=== PATIENT | female | born 1935 | race Caucasian/White ===

== ENCOUNTER 2021-08-08 20:46 | Inpatient (IN) | payer OTHER, MEDICAID ==
[~2021-08-08] VITALS: Ht 162.6 cm; Wt 59.0 kg
[~2021-08-08 20:46] MED LIST: APIX2.5T PO; CYCL-611 PO; DILT-26 PO; GABA-339 PO; GABA300C10 PO
[2021-08-08 21:54] LABS: Urine Bacteria NONE SEEN /hpf (None Seen); Urine Blood Negative /uL (Negative); Urine Specific Gravity 1.005 (1.001-1.035); Urine WBC 7 /hpf (0 - 5)
[2021-08-09 01:06] LABS: Basophils # (auto) 0 10 ^3/uL (0-0.2); Basophils % (auto) 0.5 % (0.0-2.0); Eosinophils # (auto) 0.3 10 ^3/uL (0-0.8); Eosinophils % (auto) 3.9 % (0.0-7.0); Hematocrit 36.5 % (36.0-46.0); Hemoglobin 12.5 g/dL (12.2-16.2); Lymphocytes # (auto) 2.2 10 ^3/uL (0.4-5.4); Lymphocytes % (auto) 29.6 % (10.0-50.0); Mean Corpuscular Hemoglobin 29.8 pg (28.0-32.0); Mean Corpuscular Hgb Conc. 34.3 g/dL (32.0-36.0); Mean Corpuscular Volume 86.8 fL (80.0-100.0); Monocytes # (auto) 0.6 10 ^3/uL (0-1.3); Monocytes % (auto) 8.4 % (0.0-12.0); Neutrophils # (auto) 4.3 10 ^3/uL (1.6-8.6); Neutrophils % (auto) 57.6 % (37.0-80.0); Red Cell Distribution Width 12.7 % (11.8-14.3); White Blood Cell 7.5 10^3/uL (4.4-10.8)
[2021-08-09 01:06] LABS: Albumin 4.4 g/dL (3.4-5.0); Calcium 9.1 mg/dL (8.5-10.1); Potassium 5.1 mmol/L (3.5-5.1)
[2021-08-09 01:07] LABS: Lactic Acid w/Reflex 2.2 mmol/L (0.4-2.0)
[2021-08-09 01:08] LABS: BUN/Creatinine Ratio 11.9
[2021-08-09 01:10] LABS: Bilirubin, Total 0.5 mg/dL (0.2-1.0); Total Protein 8.5 g/dL (6.4-8.2)
[2021-08-09] MEDS ORDERED: cefTRIAXone 1GM/50ML D5W 50 ML IV ONE (03:00)
[2021-08-09] MEDS ORDERED: HYDROcodone-ACET 5/325MG TAB PO PRN (07:45)
[2021-08-09] MEDS ORDERED: LABETALOL HCL 5 MG/ML 4ML SYRINGE IV PRN (07:45)
[2021-08-09] MEDS ORDERED: MORPHINE SULFATE INJ 2 MG/ml SYRG IV PRN (07:45)
[2021-08-09] MEDS ORDERED: NITROGLYCERIN 0.4 MG SL TAB SL PRN (07:45)
[2021-08-09] MEDS ORDERED: ACETAMINOPHEN 325 MG TAB PO PRN (07:45)
[2021-08-09] MEDS ORDERED: ONDANSETRON HCL 4 MG/2 ML VIAL IV PRN (07:45)
[2021-08-09] MEDS ORDERED: MORPHINE SULFATE INJ 2 MG/ml SYRG IV ONE (08:00)
[2021-08-09] MEDS ORDERED: D5W/SOD CHLO 0.9% 1,000 ML IV SCH (08:00)
[2021-08-09] MEDS ORDERED: ONDANSETRON HCL 4 MG/2 ML VIAL IV ONE (08:00)
[2021-08-09 08:18] LABS: Basophils # (auto) 0 10 ^3/uL (0-0.2); Basophils % (auto) 0.4 % (0.0-2.0); Eosinophils # (auto) 0.1 10 ^3/uL (0-0.8); Eosinophils % (auto) 1.6 % (0.0-7.0); Hematocrit 36.5 % (36.0-46.0); Hemoglobin 12.7 g/dL (12.2-16.2); Lymphocytes # (auto) 1.9 10 ^3/uL (0.4-5.4); Lymphocytes % (auto) 22.7 % (10.0-50.0); Mean Corpuscular Hemoglobin 29.9 pg (28.0-32.0); Mean Corpuscular Hgb Conc. 34.8 g/dL (32.0-36.0); Monocytes # (auto) 0.5 10 ^3/uL (0-1.3); Monocytes % (auto) 5.9 % (0.0-12.0); Neutrophils # (auto) 5.9 10 ^3/uL (1.6-8.6); Neutrophils % (auto) 69.4 % (37.0-80.0); Red Blood Cells 4.24 10^6/uL (4.0-5.20); Red Cell Distribution Width 12.7 % (11.8-14.3); White Blood Cell 8.5 10^3/uL (4.4-10.8)
[2021-08-09] MEDS ORDERED: CIPR-173 PO (08:41)
[2021-08-09] MEDS ORDERED: ONDA-144 PO (08:44)
[2021-08-09 08:51] LABS: Potassium 4.3 mmol/L (3.5-5.1)
[2021-08-09 08:59] LABS: Bilirubin, Total 0.7 mg/dL (0.2-1.0); Calcium 8.8 mg/dL (8.5-10.1); Total Protein 8.7 g/dL (6.4-8.2)
[2021-08-09 09:14] VITALS: BP 160/91
[2021-08-09] MEDS ORDERED: FAMOTIDINE (10MG/ML) 2ML VL IV SCH (10:00)
[2021-08-09] MEDS ORDERED: APIXABAN 2.5 MG TAB PO SCH (10:00)
[2021-08-09] MEDS ORDERED: CARVEDILOL 12.5 MG TAB PO SCH (10:00)
[2021-08-10] MEDS ORDERED: cefTRIAXone 1GM/50ML D5W 50 ML IV SCH (09:00)
== END 2021-08-09 10:58 | disposition home or self-care (01) | DRG 690 ==
LOC: ER 20:46 → OVERFLOW 08-09 07:47
PROVIDERS: ADMIT Nurse Practitioner Family; ATTEND Nurse Practitioner Family
DX: N30.00 Acute cystitis without hematuria (principal); E87.1 Hypo-osmolality and hyponatremia; E87.2 Acidosis; I10 Essential (primary) hypertension; I48.91 Unspecified atrial fibrillation; Z80.51 Family history of malignant neoplasm of kidney; Z85.528 Personal history of other malignant neoplasm of kidney; Z86.73 Personal history of transient ischemic attack (TIA), and cerebral infarction without residual deficits; Z87.442 Personal history of urinary calculi; Z90.49 Acquired absence of other specified parts of digestive tract; Z88.2 Allergy status to sulfonamides; Z20.822 Contact with and (suspected) exposure to COVID-19
CPT/HCPCS: 36415; 71045; 74176; 76705; 80053; 81001; 83605; 83880; 84484; 85025; 87086; 96365; 96375; G0378; J0696; J2405

== ENCOUNTER 2022-07-05 17:44 | Inpatient (IN) | payer OTHER ==
[~2022-07-05] VITALS: Ht 162.6 cm; Wt 60.5 kg
[~2022-07-05 17:44] MED LIST changes: +CIPR-173 PO; +ONDA-144 PO
[2022-07-05] MEDS ORDERED: LACTATED RINGER'S 1,000 ML IV ONE (18:30)
[2022-07-05 18:45] LABS: Urine Bacteria NONE SEEN /hpf (None Seen); Urine Blood Negative /uL (Negative); Urine Specific Gravity 1.009 (1.001-1.035); Urine WBC 8 /hpf (0 - 5)
[2022-07-05 18:53] LABS: Basophils # (auto) 0 10 ^3/uL (0-0.2); Basophils % (auto) 0.2 % (0.0-2.0); Eosinophils # (auto) 0.1 10 ^3/uL (0-0.8); Eosinophils % (auto) 0.4 % (0.0-7.0); Hematocrit 35.1 % (36.0-46.0); Hemoglobin 11.6 g/dL (12.2-16.2); Lymphocytes # (auto) 1.3 10 ^3/uL (0.4-5.4); Lymphocytes % (auto) 9.3 % (10.0-50.0); Mean Corpuscular Hemoglobin 29.3 pg (28.0-32.0); Mean Corpuscular Volume 88.7 fL (80.0-100.0); Monocytes % (auto) 6.8 % (0.0-12.0); Neutrophils # (auto) 11.9 10 ^3/uL (1.6-8.6); Neutrophils % (auto) 83.3 % (37.0-80.0); Nucleated Red Blood Cells % 0.1 %; Red Blood Cells 3.96 10^6/uL (4.0-5.20); Red Cell Distribution Width 13.5 % (11.8-14.3); White Blood Cell 14.3 10^3/uL (4.4-10.8)
[2022-07-05 19:09] LABS: Albumin 3.8 g/dL (3.4-5.0); BUN/Creatinine Ratio 12.5 (10.0-20.0); Calcium 9.1 mg/dL (8.5-10.1); Potassium 4.1 mmol/L (3.5-5.1)
[2022-07-05 19:13] LABS: Bilirubin, Total 0.7 mg/dL (0.2-1.0); Total Protein 8.5 g/dL (6.4-8.2)
[2022-07-05] MEDS ORDERED: IOHEXOL 350 MG/ML 100ML IJ ONE (20:27)
[2022-07-05] MEDS ORDERED: cefTRIAXone 1GM/50ML D5W 50 ML IV ONE (20:30)
[2022-07-05] MEDS ORDERED: HYDROcodone-ACET 5/325MG TAB PO ONE (20:45)
[2022-07-05] MEDS ORDERED: SODIUM CHLORIDE 0.9% 1,000 ML IV SCH (21:00)
[2022-07-05] MEDS ORDERED: ACETAMINOPHEN 325 MG TAB PO PRN (21:00)
[2022-07-05] MEDS: APIXABAN 2.5 MG TAB PO SCH (23:57)
[2022-07-05] MEDS: GABAPENTIN 300 MG CAP PO SCH (23:57)
[2022-07-06] MEDS: GABAPENTIN 300 MG CAP PO SCH ×3 (01:16→21:57)
[2022-07-06] MEDS: HYDROcodone-ACET 5/325MG TAB PO PRN ×3 (01:16→19:59)
[2022-07-06 05:57] LABS: Basophils # (auto) 0 10 ^3/uL (0-0.2); Basophils % (auto) 0.2 % (0.0-2.0); Eosinophils # (auto) 0 10 ^3/uL (0-0.8); Eosinophils % (auto) 0.1 % (0.0-7.0); Hematocrit 35.2 % (36.0-46.0); Hemoglobin 11.8 g/dL (12.2-16.2); Lymphocytes # (auto) 1.8 10 ^3/uL (0.4-5.4); Lymphocytes % (auto) 13.6 % (10.0-50.0); Mean Corpuscular Hemoglobin 29.4 pg (28.0-32.0); Mean Corpuscular Hgb Conc. 33.5 g/dL (32.0-36.0); Mean Corpuscular Volume 87.8 fL (80.0-100.0); Monocytes % (auto) 7.9 % (0.0-12.0); Neutrophils # (auto) 10.2 10 ^3/uL (1.6-8.6); Neutrophils % (auto) 78.2 % (37.0-80.0); Nucleated Red Blood Cells % 0.1 %; Red Blood Cells 4.01 10^6/uL (4.0-5.20); Red Cell Distribution Width 13.3 % (11.8-14.3)
[2022-07-06 06:18] LABS: Potassium 3.5 mmol/L (3.5-5.1)
[2022-07-06 06:26] LABS: Albumin 3.2 g/dL (3.4-5.0); BUN/Creatinine Ratio 14.1 (10.0-20.0); Bilirubin, Total 0.7 mg/dL (0.2-1.0); Calcium 8.6 mg/dL (8.5-10.1); Total Protein 7.8 g/dL (6.4-8.2)
[2022-07-06] MEDS: cefTRIAXone 1GM/50ML D5W 50 ML IV SCH (10:00)
[2022-07-06] MEDS: dilTIAZem HCL 180MG ER CAP PO SCH (10:02)
[2022-07-06] MEDS: APIXABAN 2.5 MG TAB PO SCH (10:06)
[2022-07-06] MEDS ORDERED: DIGOXIN 0.125 MG TAB PO ONE (11:15)
[2022-07-06] MEDS ORDERED: DIGOXIN (250MCG/ML) 2 ML AMPULE IV ONE (11:30)
[2022-07-06] MEDS ORDERED: POTASSIUM EFFERVESENT TAB 25 MEQ PO ONE (13:00)
[2022-07-06] MEDS ORDERED: FUROSEMIDE 20 MG/2 ML VIAL IV ONE (13:00)
[2022-07-06] MEDS ORDERED: AMIODARONE 450mg/250ml AE 250 ML IV SCH (13:00)
[2022-07-06] MEDS ORDERED: AMIODARONE HCL 150 MG in D5W 5% 100 ML IV ONE (13:00)
[2022-07-06 16:02] LABS: Magnesium 2.2 mg/dL (1.6-2.6)
[2022-07-06] MEDS ORDERED: RIVAROXABAN 20 MG TAB PO SCH (18:00)
[2022-07-06 19:53] VITALS: BP 125/56
[2022-07-06] MEDS: FUROSEMIDE 20 MG/2 ML VIAL IV SCH (20:04)
[2022-07-06] MEDS: RIVAROXABAN 15 MG TAB PO SCH (20:05)
[2022-07-06 22:00] VITALS: BP 119/65
[2022-07-07] MEDS: HYDROcodone-ACET 5/325MG TAB PO PRN ×2 (00:05→09:00)
[2022-07-07] MEDS: AMIODARONE 450mg/250ml AE 250 ML IV SCH ×2 (02:33→09:04)
[2022-07-07 05:00] VITALS: BP 115/59
[2022-07-07] MEDS: FUROSEMIDE 20 MG/2 ML VIAL IV SCH ×2 (06:47→17:40)
[2022-07-07 08:00] VITALS: BP 115/59
[2022-07-07 09:00] VITALS: BP 108/51
[2022-07-07] MEDS: cefTRIAXone 1GM/50ML D5W 50 ML IV SCH (09:01)
[2022-07-07] MEDS: GABAPENTIN 300 MG CAP PO SCH (09:01)
[2022-07-07] MEDS: dilTIAZem HCL 180MG ER CAP PO SCH (09:10)
[2022-07-07 09:38] LABS: Basophils # (auto) 0 10 ^3/uL (0-0.2); Basophils % (auto) 0.3 % (0.0-2.0); Eosinophils # (auto) 0.1 10 ^3/uL (0-0.8); Eosinophils % (auto) 1.4 % (0.0-7.0); Hematocrit 36.7 % (36.0-46.0); Hemoglobin 12.3 g/dL (12.2-16.2); Lymphocytes # (auto) 1.5 10 ^3/uL (0.4-5.4); Lymphocytes % (auto) 16.4 % (10.0-50.0); Mean Corpuscular Hemoglobin 29.7 pg (28.0-32.0); Mean Corpuscular Hgb Conc. 33.5 g/dL (32.0-36.0); Mean Corpuscular Volume 88.6 fL (80.0-100.0); Monocytes # (auto) 0.4 10 ^3/uL (0-1.3); Monocytes % (auto) 4.5 % (0.0-12.0); Neutrophils # (auto) 7.2 10 ^3/uL (1.6-8.6); Neutrophils % (auto) 77.4 % (37.0-80.0); Red Blood Cells 4.14 10^6/uL (4.0-5.20); Red Cell Distribution Width 13.5 % (11.8-14.3); White Blood Cell 9.4 10^3/uL (4.4-10.8)
[2022-07-07 09:52] LABS: Albumin 3.4 g/dL (3.4-5.0); Calcium 8.9 mg/dL (8.5-10.1); Potassium 3.9 mmol/L (3.5-5.1)
[2022-07-07 09:56] LABS: Bilirubin, Total 0.6 mg/dL (0.2-1.0); Total Protein 7.9 g/dL (6.4-8.2)
[2022-07-07] MEDS ORDERED: AMIODARONE HCL 200 MG TAB PO SCH (11:06)
[2022-07-07 13:00] VITALS: BP 106/51
[2022-07-07 16:58] VITALS: BP 110/53
[2022-07-07] MEDS: RIVAROXABAN 15 MG TAB PO SCH (17:40)
[2022-07-07 17:41] VITALS: BP 110/53
[2022-07-08] MEDS ORDERED: dilTIAZem 120MG ER CAP PO SCH (10:00)
[2022-07-08] MEDS ORDERED: AMIODARONE HCL 200 MG TAB PO SCH (10:00)
== END 2022-07-07 19:07 | disposition home or self-care (01) | DRG 871 ==
LOC: ER 17:44 → EDBD 17:44 → EDUNIT# 17:44 → OVERFLOW 21:17 → EAST 07-06 18:55 → TELE-EAST 07-06 21:49
PROVIDERS: ADMIT Nurse Practitioner Family; ATTEND Internal Medicine
DX: A41.9 Sepsis, unspecified organism (principal); I50.33 Acute on chronic diastolic (congestive) heart failure; N39.0 Urinary tract infection, site not specified; D25.9 Leiomyoma of uterus, unspecified; E66.9 Obesity, unspecified; E78.5 Hyperlipidemia, unspecified; I11.0 Hypertensive heart disease with heart failure; G62.9 Polyneuropathy, unspecified; M13.88 Other specified arthritis, other site; I48.0 Paroxysmal atrial fibrillation; Z20.822 Contact with and (suspected) exposure to COVID-19; R91.1 Solitary pulmonary nodule; Z68.22 Body mass index [BMI] 22.0-22.9, adult; Z80.51 Family history of malignant neoplasm of kidney; Z79.01 Long term (current) use of anticoagulants; Z86.73 Personal history of transient ischemic attack (TIA), and cerebral infarction without residual deficits; Z87.442 Personal history of urinary calculi; Z88.2 Allergy status to sulfonamides
CPT/HCPCS: 36415; 71045; 73502; 74177; 80053; 80061; 81001; 83036; 83605; 83690; 83735; 83880; 84443; 84484; 85025; 87040; 87086; 87426; 93005; 93306; 97110; 97116; 97163; 97530; G0378; J0696; J7060

== ENCOUNTER 2022-07-24 17:21 | Inpatient (IN) | payer OTHER ==
[~2022-07-24] VITALS: Ht 162.6 cm; Wt 67.6 kg
[2022-07-24] MEDS ORDERED: SODIUM CHLORIDE 0.9% 500 ML IV ONE (18:00)
[2022-07-24] MEDS ORDERED: ONDANSETRON HCL 4 MG/2 ML VIAL IV ONE (18:00)
[2022-07-24 18:36] LABS: Basophils # (auto) 0 10 ^3/uL (0-0.2); Basophils % (auto) 0.4 % (0.0-2.0); Eosinophils # (auto) 0.1 10 ^3/uL (0-0.8); Eosinophils % (auto) 1.1 % (0.0-7.0); Hematocrit 33.8 % (36.0-46.0); Hemoglobin 11.2 g/dL (12.2-16.2); Lymphocytes # (auto) 1.6 10 ^3/uL (0.4-5.4); Lymphocytes % (auto) 18.3 % (10.0-50.0); Mean Corpuscular Hgb Conc. 33.1 g/dL (32.0-36.0); Mean Corpuscular Volume 87.5 fL (80.0-100.0); Monocytes # (auto) 0.6 10 ^3/uL (0-1.3); Monocytes % (auto) 6.6 % (0.0-12.0); Neutrophils # (auto) 6.3 10 ^3/uL (1.6-8.6); Neutrophils % (auto) 73.6 % (37.0-80.0); Nucleated Red Blood Cells % 0.1 %; Red Blood Cells 3.87 10^6/uL (4.0-5.20); White Blood Cell 8.5 10^3/uL (4.4-10.8)
[2022-07-24 18:49] LABS: Albumin 3.8 g/dL (3.4-5.0); Calcium 8.9 mg/dL (8.5-10.1); Magnesium 1.9 mg/dL (1.6-2.6); Potassium 4.1 mmol/L (3.5-5.1)
[2022-07-24 18:52] LABS: Bilirubin, Total 0.5 mg/dL (0.2-1.0)
[2022-07-24 19:36] LABS: Urine Amorphous Crystal FEW /hpf (None Seen); Urine Bacteria NONE SEEN /hpf (None Seen); Urine Blood Negative /uL (Negative); Urine Specific Gravity 1.011 (1.001-1.035); Urine WBC 1 /hpf (0 - 5)
[2022-07-24] MEDS ORDERED: DOCUSATE SOD 100 MG CAP PO PRN (21:15)
[2022-07-24] MEDS ORDERED: cefTRIAXone 1GM/50ML D5W 50 ML IV ONE (21:15)
[2022-07-24] MEDS ORDERED: MORPHINE SULFATE INJ 2 MG/ml SYRG IV PRN (22:30)
[2022-07-24] MEDS ORDERED: NITROGLYCERIN 0.4 MG SL TAB SL PRN (22:30)
[2022-07-25] MEDS: APIXABAN 2.5 MG TAB PO SCH ×2 (00:06→10:11)
[2022-07-25] MEDS: SODIUM CHLORIDE 0.9% 1,000 ML IV SCH ×2 (04:55→18:59)
[2022-07-25] MEDS: hydrALAZINE HCL 20 MG/ML VL IV PRN ×2 (05:08→21:42)
[2022-07-25] MEDS: HYDROcodone-ACET 5/325MG TAB PO PRN ×4 (05:38→21:58)
[2022-07-25 05:50] LABS: Basophils # (auto) 0 10 ^3/uL (0-0.2); Basophils % (auto) 0.4 % (0.0-2.0); Eosinophils # (auto) 0.2 10 ^3/uL (0-0.8); Eosinophils % (auto) 2.5 % (0.0-7.0); Hematocrit 32.4 % (36.0-46.0); Hemoglobin 11.1 g/dL (12.2-16.2); Lymphocytes # (auto) 1.8 10 ^3/uL (0.4-5.4); Lymphocytes % (auto) 25.9 % (10.0-50.0); Mean Corpuscular Hemoglobin 29.6 pg (28.0-32.0); Mean Corpuscular Hgb Conc. 34.1 g/dL (32.0-36.0); Mean Corpuscular Volume 86.7 fL (80.0-100.0); Monocytes # (auto) 0.5 10 ^3/uL (0-1.3); Monocytes % (auto) 7.5 % (0.0-12.0); Neutrophils # (auto) 4.5 10 ^3/uL (1.6-8.6); Neutrophils % (auto) 63.7 % (37.0-80.0); Nucleated Red Blood Cells % 0.1 %; Red Blood Cells 3.74 10^6/uL (4.0-5.20); Red Cell Distribution Width 13.1 % (11.8-14.3); White Blood Cell 7.1 10^3/uL (4.4-10.8)
[2022-07-25 06:10] LABS: Potassium 3.7 mmol/L (3.5-5.1)
[2022-07-25 06:18] LABS: Albumin 3.6 g/dL (3.4-5.0); BUN/Creatinine Ratio 18.2 (10.0-20.0); Bilirubin, Total 0.5 mg/dL (0.2-1.0); Calcium 8.6 mg/dL (8.5-10.1); Total Protein 7.2 g/dL (6.4-8.2)
[2022-07-25] MEDS: ONDANSETRON HCL 4 MG/2 ML VIAL IV PRN ×3 (06:39→21:31)
[2022-07-25 09:18] VITALS: BP 145/62
[2022-07-25 09:20] VITALS: BP 128/79
[2022-07-25] MEDS: cefTRIAXone 1GM/50ML D5W 50 ML IV SCH (10:11)
[2022-07-25] MEDS ORDERED: RIV20T PO (11:53)
[2022-07-25] MEDS ORDERED: DILT60CA PO (11:53)
[2022-07-25] MEDS ORDERED: TEMA15CA2 PO (11:53)
[2022-07-25] MEDS ORDERED: MELO1TAB73 PO (11:53)
[2022-07-25] MEDS ORDERED: AMIO200T4 PO (11:53)
[2022-07-25] MEDS ORDERED: CITA10TA70 PO (11:53)
[2022-07-25] MEDS ORDERED: CHOL1TAB42 PO (11:53)
[2022-07-25] MEDS ORDERED: ATOR40TA52 PO (11:53)
[2022-07-25] MEDS ORDERED: HYDR-4798 PO (11:53)
[2022-07-25 12:00] VITALS: BP 143/75
[2022-07-25 16:00] VITALS: BP 151/90
[2022-07-25] MEDS: GABAPENTIN 300 MG CAP PO SCH ×2 (17:54→21:31)
[2022-07-25] MEDS: ACETAMINOPHEN 325 MG TAB PO PRN (21:23)
[2022-07-25] MEDS: AMIODARONE HCL 200 MG TAB PO SCH (21:30)
[2022-07-25] MEDS: TEMAZEPAM 15 MG CAP PO PRN ×2 (21:31→21:58)
[2022-07-25] MEDS: dilTIAZem 120MG ER CAP PO SCH (22:00)
[2022-07-25] MEDS ORDERED: ATORVASTATIN 20 MG TAB PO SCH (22:00)
[2022-07-25 22:43] VITALS: BP 161/72
[2022-07-26] MEDS ORDERED: dilTIAZem HCL 60 MG TAB PO ONE (00:30)
[2022-07-26] MEDS: HYDROcodone-ACET 5/325MG TAB PO PRN ×3 (04:00→10:16)
[2022-07-26 05:00] VITALS: BP 115/57
[2022-07-26] MEDS: SODIUM CHLORIDE 0.9% 1,000 ML IV SCH (06:23)
[2022-07-26] MEDS: GABAPENTIN 300 MG CAP PO SCH ×2 (06:48→13:29)
[2022-07-26 06:49] VITALS: BP 101/49
[2022-07-26 09:00] VITALS: BP 96/40
[2022-07-26] MEDS: ONDANSETRON HCL 4 MG/2 ML VIAL IV PRN (09:50)
[2022-07-26] MEDS: cefTRIAXone 1GM/50ML D5W 50 ML IV SCH (09:54)
[2022-07-26] MEDS ORDERED: CHOLECALCIFEROL (VITD3) 2,000 UNIT CAP/TAB PO SCH (10:00)
[2022-07-26] MEDS: dilTIAZem 120MG ER CAP PO SCH (10:00)
[2022-07-26] MEDS: AMIODARONE HCL 200 MG TAB PO SCH (10:00)
[2022-07-26] MEDS ORDERED: RIVAROXABAN 20 MG TAB PO SCH (10:00)
[2022-07-26] MEDS ORDERED: CITALOPRAM HYDROBR 20 MG TAB PO SCH (10:00)
[2022-07-26] MEDS ORDERED: MELOXICAM 7.5MG PO SCH (10:00)
[2022-07-26] MEDS ORDERED: HYDROcodone-ACET 5/325MG TAB PO ONE (10:15)
[2022-07-26] MEDS ORDERED: CEPH-510 PO ×2 (10:40)
[2022-07-26] MEDS ORDERED: NITR-87 PO (10:43)
[2022-07-26 13:00] VITALS: BP 102/38
[2022-07-26] MEDS: ACETAMINOPHEN 325 MG TAB PO PRN (14:31)
[2022-07-26 17:00] VITALS: BP 136/79
== END 2022-07-26 18:30 | disposition home or self-care (01) | DRG 641 ==
LOC: ER 17:21 → EDBD 17:21 → OVERFLOW 22:19 → CENTRAL 07-25 09:15
PROVIDERS: ADMIT Nurse Practitioner Family; ATTEND Internal Medicine
DX: E87.1 Hypo-osmolality and hyponatremia (principal); N30.00 Acute cystitis without hematuria; T46.2X5A Adverse effect of other antidysrhythmic drugs, initial encounter; E78.00 Pure hypercholesterolemia, unspecified; I10 Essential (primary) hypertension; I48.91 Unspecified atrial fibrillation; G62.9 Polyneuropathy, unspecified; Z79.01 Long term (current) use of anticoagulants; Z86.73 Personal history of transient ischemic attack (TIA), and cerebral infarction without residual deficits; Z87.442 Personal history of urinary calculi; Z87.440 Personal history of urinary (tract) infections; Y92.89 Other specified places as the place of occurrence of the external cause
CPT/HCPCS: 36415; 71045; 71250; 74176; 80053; 81001; 83735; 84484; 85025; 87040; 87081; 87086; 93005; 96365; 99291; G0378; J0696; J2405

== ENCOUNTER 2022-09-08 09:46 | Emergency (ER) | payer OTHER ==
[~2022-09-08] VITALS: Ht 160 cm; Wt 59.0 kg
[~2022-09-08 09:46] MED LIST changes: +AMIO200T13 PO; -APIX2.5T PO; +ATOR40TA52 PO; +CHOL1TAB42 PO; -CIPR-173 PO; +CITA10TA5 PO; -CYCL-611 PO; -DILT-26 PO; +DILT60CA PO; -GABA300C10 PO; +HYDR-4798 PO; +MELO7.5T7 PO; +NITR-87 PO; -ONDA-144 PO; +RIV20T PO; +TEMA15CA2 PO
[2022-09-08 10:01] VITALS: BP 139/82
[2022-09-08 10:31] LABS: Basophils # (auto) 0 10 ^3/uL (0-0.2); Basophils % (auto) 0.3 % (0.0-2.0); Eosinophils # (auto) 0 10 ^3/uL (0-0.8); Eosinophils % (auto) 0.2 % (0.0-7.0); Hemoglobin 12.8 g/dL (12.2-16.2); Lymphocytes # (auto) 1.2 10 ^3/uL (0.4-5.4); Lymphocytes % (auto) 17.3 % (10.0-50.0); Mean Corpuscular Hemoglobin 28.7 pg (28.0-32.0); Mean Corpuscular Hgb Conc. 32.8 g/dL (32.0-36.0); Mean Corpuscular Volume 87.3 fL (80.0-100.0); Monocytes # (auto) 0.5 10 ^3/uL (0-1.3); Monocytes % (auto) 7.2 % (0.0-12.0); Neutrophils # (auto) 5.2 10 ^3/uL (1.6-8.6); Red Blood Cells 4.47 10^6/uL (4.0-5.20); Red Cell Distribution Width 13.6 % (11.8-14.3); White Blood Cell 6.9 10^3/uL (4.4-10.8)
[2022-09-08 11:42] LABS: Albumin 4.1 g/dL (3.4-5.0); Potassium 4.2 mmol/L (3.5-5.1)
[2022-09-08 11:46] LABS: Bilirubin, Total 0.7 mg/dL (0.2-1.0); Total Protein 8.5 g/dL (6.4-8.2)
[2022-09-08] MEDS ORDERED: HYDROcodone-ACET 5/325MG TAB PO ONE (12:00)
[2022-09-08] MEDS ORDERED: ONDANSETRON ODT 4 MG TAB PO ONE (12:00)
[2022-09-08] MEDS ORDERED: ZOFR4T PO (14:16)
== END 2022-09-08 13:46 | disposition left against medical advice (07) ==
LOC: EDBD 09:46 → EDUNIT# 09:46 → ER 09:46
DX: I48.91 Unspecified atrial fibrillation (principal); R10.84 Generalized abdominal pain; I10 Essential (primary) hypertension; Z87.442 Personal history of urinary calculi; Z79.899 Other long term (current) drug therapy; Z86.73 Personal history of transient ischemic attack (TIA), and cerebral infarction without residual deficits
CPT/HCPCS: 36415; 74176; 80053; 84484; 85025; 93005; 99284; Q0162

== ENCOUNTER 2022-11-13 23:10 | Inpatient (IN) | payer OTHER ==
[~2022-11-13] VITALS: Ht 162.6 cm; Wt 69.7 kg
[~2022-11-13 23:10] MED LIST changes: +ZOFR4T PO
[2022-11-14] VITALS: PULSE 82; RESP 18; O2SAT 93
[2022-11-14 04:51] LABS: Basophils # (auto) 0 10 ^3/uL (0-0.2); Basophils % (auto) 0.2 % (0.0-2.0); Eosinophils # (auto) 0.2 10 ^3/uL (0-0.8); Eosinophils % (auto) 2.2 % (0.0-7.0); Hematocrit 31.8 % (36.0-46.0); Lymphocytes # (auto) 1.7 10 ^3/uL (0.4-5.4); Lymphocytes % (auto) 20.3 % (10.0-50.0); Mean Corpuscular Hemoglobin 29.5 pg (28.0-32.0); Mean Corpuscular Hgb Conc. 34.5 g/dL (32.0-36.0); Mean Corpuscular Volume 85.4 fL (80.0-100.0); Monocytes # (auto) 0.8 10 ^3/uL (0-1.3); Monocytes % (auto) 9.5 % (0.0-12.0); Neutrophils # (auto) 5.8 10 ^3/uL (1.6-8.6); Neutrophils % (auto) 67.8 % (37.0-80.0); Red Blood Cells 3.72 10^6/uL (4.0-5.20); Red Cell Distribution Width 14.1 % (11.8-14.3); White Blood Cell 8.5 10^3/uL (4.4-10.8)
[2022-11-14 04:57] LABS: Albumin 3.3 g/dL (3.4-5.0); Calcium 8.8 mg/dL (8.5-10.1); Potassium 4.6 mmol/L (3.5-5.1)
[2022-11-14 05:01] LABS: BUN/Creatinine Ratio 26.1 (10.0-20.0); Bilirubin, Total 0.6 mg/dL (0.2-1.0); Total Protein 7.4 g/dL (6.4-8.2)
[2022-11-14 05:39] LABS: INR 1.54 (0.9-1.15); Partial Thromboplastin Time 46.7 SEC (24.5-34.5); Prothrombin Time 15.7 sec (9.3-11.8)
[2022-11-14] MEDS ORDERED: ACETAMINOPHEN 500 MG TAB PO ONE (09:15)
[2022-11-14] MEDS ORDERED: ONDANSETRON HCL 4 MG/2 ML VIAL IV ONE (09:30)
[2022-11-14] MEDS ORDERED: MORPHINE SULFATE INJ 2 MG/ml SYRG IV ONE (09:30)
[2022-11-14] MEDS ORDERED: ACETAMINOPHEN 325 MG TAB PO PRN (10:00)
[2022-11-14] MEDS ORDERED: ONDANSETRON HCL 4 MG/2 ML VIAL IV PRN (10:00)
[2022-11-14] MEDS ORDERED: DOCUSATE SOD 100 MG CAP PO PRN (10:00)
[2022-11-14] MEDS ORDERED: NITROGLYCERIN 0.4 MG SL TAB SL PRN (10:00)
[2022-11-14] MEDS ORDERED: MORPHINE SULFATE INJ 2 MG/ml SYRG IV PRN (10:00)
[2022-11-14 13:33] VITALS: BP 91/49; PULSE 104; RESP 18; TEMP 98.4; O2SAT 92
[2022-11-14] MEDS ORDERED: PATIENTS OWN MEDICATION (Gabapentin 1 TAB) PO SCH (14:00)
[2022-11-14] MEDS ORDERED: GABAPENTIN 300 MG CAP PO SCH ×2 (14:51→22:00)
[2022-11-14] MEDS: SODIUM CHLOR 0.9% PF (SALINE LOCK) 10ML VIAL/SYR IV SCH ×2 (14:57→21:33)
[2022-11-14 17:59] VITALS: BP 111/76; PULSE 113; RESP 18; TEMP 97.6; O2SAT 90
[2022-11-14] MEDS: HYDROcodone-ACET 5/325MG TAB PO PRN ×2 (18:05→18:39)
[2022-11-14 20:00] VITALS: O2SAT 92
[2022-11-14] MEDS: ATORVASTATIN 20 MG TAB PO SCH (21:30)
[2022-11-14] MEDS: GABAPENTIN 300 MG CAP PO SCH (21:31)
[2022-11-14] MEDS: AMIODARONE HCL 200 MG TAB PO SCH (21:32)
[2022-11-14 22:00] VITALS: BP 110/59; PULSE 115; RESP 18; TEMP 98.7; O2SAT 92
[2022-11-14] MEDS: DILTIAZEM HCL 60 MG PO SCH (22:00)
[2022-11-15] VITALS (7 sets, daily range): BP systolic 110–138; BP diastolic 53–72; PULSE 91–107; RESP 16–20; TEMP 97.6–98.3; O2SAT 91–99
[2022-11-15] MEDS: HYDROcodone-ACET 10/325MG TAB PO PRN ×4 (00:55→19:50)
[2022-11-15] MEDS: GABAPENTIN 300 MG CAP PO SCH ×3 (05:25→22:01)
[2022-11-15] MEDS: SODIUM CHLOR 0.9% PF (SALINE LOCK) 10ML VIAL/SYR IV SCH ×3 (05:25→22:00)
[2022-11-15 06:57] LABS: Potassium 4.4 mmol/L (3.5-5.1)
[2022-11-15 07:08] LABS: Albumin 3.2 g/dL (3.4-5.0); BUN/Creatinine Ratio 23.8 (10.0-20.0); Bilirubin, Total 0.9 mg/dL (0.2-1.0); Calcium 8.8 mg/dL (8.5-10.1); Total Protein 7.4 g/dL (6.4-8.2)
[2022-11-15 07:36] LABS: Basophils # (auto) 0 10 ^3/uL (0-0.2); Basophils % (auto) 0.4 % (0.0-2.0); Eosinophils # (auto) 0.4 10 ^3/uL (0-0.8); Eosinophils % (auto) 4.2 % (0.0-7.0); Hematocrit 31.7 % (36.0-46.0); Hemoglobin 10.5 g/dL (12.2-16.2); Lymphocytes # (auto) 1.9 10 ^3/uL (0.4-5.4); Lymphocytes % (auto) 22.9 % (10.0-50.0); Mean Corpuscular Hemoglobin 28.8 pg (28.0-32.0); Mean Corpuscular Hgb Conc. 33.2 g/dL (32.0-36.0); Mean Corpuscular Volume 86.7 fL (80.0-100.0); Monocytes # (auto) 0.7 10 ^3/uL (0-1.3); Monocytes % (auto) 8.6 % (0.0-12.0); Neutrophils # (auto) 5.4 10 ^3/uL (1.6-8.6); Neutrophils % (auto) 63.9 % (37.0-80.0); Red Blood Cells 3.66 10^6/uL (4.0-5.20); Red Cell Distribution Width 14.4 % (11.8-14.3); White Blood Cell 8.4 10^3/uL (4.4-10.8)
[2022-11-15] MEDS: DILTIAZEM HCL 60 MG PO SCH ×2 (10:00→21:53)
[2022-11-15] MEDS ORDERED: PATIENTS OWN MEDICATION (Atorvastatin Calcium 1 TAB) PO SCH (10:00)
[2022-11-15] MEDS: AMIODARONE HCL 200 MG TAB PO SCH ×2 (10:21→22:01)
[2022-11-15] MEDS: RIVAROXABAN 20 MG TAB PO SCH (10:21)
[2022-11-15] MEDS: CITALOPRAM HYDROBR 20 MG TAB PO SCH (10:22)
[2022-11-15] MEDS: ATORVASTATIN 20 MG TAB PO SCH (22:01)
[2022-11-16] MEDS: HYDROcodone-ACET 10/325MG TAB PO PRN (02:15)
[2022-11-16 05:00] VITALS: BP 115/67; PULSE 110; RESP 16; TEMP 96.4; O2SAT 92
[2022-11-16] MEDS: GABAPENTIN 300 MG CAP PO SCH ×2 (05:44→14:00)
[2022-11-16] MEDS: SODIUM CHLOR 0.9% PF (SALINE LOCK) 10ML VIAL/SYR IV SCH ×2 (05:44→14:00)
[2022-11-16] MEDS: HYDROcodone-ACET 5/325MG TAB PO PRN ×4 (05:45→17:37)
[2022-11-16 08:00] VITALS: O2SAT 93
[2022-11-16 09:00] VITALS: BP 146/87; PULSE 110; RESP 20; TEMP 98.1; O2SAT 95
[2022-11-16] MEDS: AMIODARONE HCL 200 MG TAB PO SCH (09:20)
[2022-11-16] MEDS: CITALOPRAM HYDROBR 20 MG TAB PO SCH (09:20)
[2022-11-16] MEDS: RIVAROXABAN 20 MG TAB PO SCH (09:20)
[2022-11-16] MEDS: DILTIAZEM HCL 60 MG PO SCH (09:33)
[2022-11-16 13:00] VITALS: BP 126/75; PULSE 107; RESP 18; TEMP 98.4; O2SAT 96
[2022-11-16 17:00] VITALS: BP 142/72; PULSE 103; RESP 19; TEMP 98.1; O2SAT 95
[2022-11-16 20:00] VITALS: O2SAT 93
== END 2022-11-16 20:26 | disposition home health service (06) | DRG 536 ==
LOC: EDBD 23:10 → EDUNIT# 23:10 → ER 23:10 → OVERFLOW 11-14 09:56 → WEST WING 11-14 13:15
PROVIDERS: ADMIT Nurse Practitioner Family; ATTEND Internal Medicine
DX: S32.591A Other specified fracture of right pubis, initial encounter for closed fracture (principal); S32.9XXA Fracture of unspecified parts of lumbosacral spine and pelvis, initial encounter for closed fracture; I10 Essential (primary) hypertension; I48.91 Unspecified atrial fibrillation; W01.0XXA Fall on same level from slipping, tripping and stumbling without subsequent striking against object, initial encounter; Z86.73 Personal history of transient ischemic attack (TIA), and cerebral infarction without residual deficits; Z88.2 Allergy status to sulfonamides; Z79.899 Other long term (current) drug therapy; Z87.442 Personal history of urinary calculi; Y93.89 Activity, other specified; Y92.89 Other specified places as the place of occurrence of the external cause; Y99.8 Other external cause status; Z80.51 Family history of malignant neoplasm of kidney
CPT/HCPCS: 36415; 71045; 72192; 80053; 84484; 85025; 85610; 85730; 93005; 96374; 96375; 97110; 97116; 97163; 97530; G0378; J2405

== ENCOUNTER 2022-12-15 12:49 | Emergency (ER) | payer OTHER ==
[~2022-12-15] VITALS: Ht 162.6 cm; Wt 61.3 kg
[~2022-12-15 12:49] MED LIST changes: -NITR-87 PO; -ZOFR4T PO
[2022-12-15 16:55] VITALS: BP 110/74; PULSE 100; RESP 19; TEMP 98; O2SAT 99
== END 2022-12-15 17:02 | disposition home or self-care (01) ==
LOC: ER 12:49
DX: S50.01XA Contusion of right elbow, initial encounter (principal); S80.02XA Contusion of left knee, initial encounter; I10 Essential (primary) hypertension; I48.91 Unspecified atrial fibrillation; Z88.2 Allergy status to sulfonamides; Z79.899 Other long term (current) drug therapy; W01.0XXA Fall on same level from slipping, tripping and stumbling without subsequent striking against object, initial encounter; Y93.89 Activity, other specified; Y92.89 Other specified places as the place of occurrence of the external cause; Y99.8 Other external cause status
CPT/HCPCS: 73080; 73562; 93005

== ENCOUNTER 2023-01-13 12:02 | Emergency (ER) | payer OTHER ==
[~2023-01-13] VITALS: Ht 162.6 cm; Wt 61.3 kg
[2023-01-13 12:02] VITALS: BP 95/56; PULSE 118; RESP 18; O2SAT 97
== END 2023-01-13 22:35 | disposition left against medical advice (07) ==
LOC: ER 12:02
DX: S32.89XA Fracture of other parts of pelvis, initial encounter for closed fracture (principal); I48.91 Unspecified atrial fibrillation; I10 Essential (primary) hypertension; Z86.73 Personal history of transient ischemic attack (TIA), and cerebral infarction without residual deficits; Z88.2 Allergy status to sulfonamides; Z79.899 Other long term (current) drug therapy; Z87.442 Personal history of urinary calculi; Z98.890 Other specified postprocedural states; W18.39XA Other fall on same level, initial encounter; Y93.89 Activity, other specified; Y92.89 Other specified places as the place of occurrence of the external cause; Y99.8 Other external cause status
CPT/HCPCS: 72192

== ENCOUNTER 2023-01-18 20:21 | Emergency (ER) | payer OTHER ==
[~2023-01-18] VITALS: Ht 162.6 cm; Wt 68.0 kg
[2023-01-18] MEDS ORDERED: ONDANSETRON ODT 4 MG TAB PO ONE (23:45)
[2023-01-18] MEDS ORDERED: HYDROcodone-ACET 10/325MG TAB PO ONE (23:45)
[2023-01-19] MEDS: MORPHINE SULFATE INJ 2 MG/ml SYRG IM ONE (00:56)
[2023-01-19 01:10] VITALS: O2SAT 96
[2023-01-19 02:37] LABS: Urine Bacteria FEW /hpf (None Seen); Urine Blood TRACE /uL (Negative); Urine Clarity HAZY (Clear); Urine Color Colorless (Yellow); Urine Protein, UAD TRACE (Negative); Urine Specific Gravity 1.009 (1.001-1.035); Urine Urobilinogen Normal (Negative); Urine WBC 368 /hpf (0 - 5); Urine WBC Clumps PRESENT /hpf (None Seen); Urine pH 6.5 (5.0-8.0)
[2023-01-19] MEDS ORDERED: cefTRIAXone SOD 1,000 MG VL IM ONE (02:45)
[2023-01-19] MEDS ORDERED: CIPR500T4 PO (02:55)
[2023-01-19] MEDS ORDERED: MORPHINE SULFATE INJ 2 MG/ml SYRG IM ONE (04:30)
[2023-01-19] MEDS ORDERED: LIDOCAINE 1% HCL (LOCAL ANESTH.) INJ 20ML MDV ID ONE (04:30)
[2023-01-19 05:25] VITALS: BP 123/67; PULSE 78; RESP 16
== END 2023-01-19 07:26 | disposition home or self-care (01) ==
LOC: EDBD 20:21 → ER 20:21
DX: N39.0 Urinary tract infection, site not specified (principal); G89.29 Other chronic pain; M79.604 Pain in right leg; I48.91 Unspecified atrial fibrillation; I10 Essential (primary) hypertension; Z88.2 Allergy status to sulfonamides; Z79.899 Other long term (current) drug therapy; Z86.73 Personal history of transient ischemic attack (TIA), and cerebral infarction without residual deficits; Z87.442 Personal history of urinary calculi
CPT/HCPCS: 81001; 93971; 96372; 99285; J0696; J2001; J2270; Q0162

== ENCOUNTER 2023-01-20 18:16 | Emergency (ER) | payer OTHER ==
[~2023-01-20] VITALS: Ht 162.6 cm; Wt 61.3 kg
[~2023-01-20 18:16] MED LIST changes: +CIPR500T4 PO
[2023-01-20] MEDS ORDERED: HYDROcodone-ACET 10/325MG TAB PO ONE (19:30)
[2023-01-20] MEDS ORDERED: SODIUM CHLORIDE 0.9% 500 ML IV ONE (22:30)
[2023-01-20] MEDS ORDERED: KETOROLAC TROMETH 30 MG/ML 1ML VIAL IV ONE (22:45)
[2023-01-21] MEDS ORDERED: HYDR-4798 PO ×2 (01:09)
[2023-01-21 02:01] VITALS: BP 113/61; PULSE 71; RESP 17; O2SAT 99
[2023-01-21] MEDS ORDERED: HYDR-4795 PO (15:36)
== END 2023-01-21 02:22 | disposition home or self-care (01) ==
LOC: ER 18:16 → EDBD 18:16 → ER 01-21 02:22
DX: M54.10 Radiculopathy, site unspecified (principal); G89.29 Other chronic pain; M25.552 Pain in left hip; I10 Essential (primary) hypertension; Z88.2 Allergy status to sulfonamides; Z79.899 Other long term (current) drug therapy; Z86.73 Personal history of transient ischemic attack (TIA), and cerebral infarction without residual deficits; Z87.442 Personal history of urinary calculi
CPT/HCPCS: 96360; 99283; J7040

== ENCOUNTER 2023-02-21 01:58 | Inpatient (IN) | payer OTHER ==
[~2023-02-21] VITALS: Ht 162.6 cm; Wt 63.9 kg
[~2023-02-21 01:58] MED LIST changes: +HYDR-4795 PO
[2023-02-21] MEDS ORDERED: MORPHINE SULFATE INJ 2 MG/ml SYRG IM ONE (03:45)
[2023-02-21 04:42] LABS: Basophils # (auto) 0 10 ^3/uL (0-0.2); Basophils % (auto) 0.3 % (0.0-2.0); Eosinophils # (auto) 0.1 10 ^3/uL (0-0.8); Eosinophils % (auto) 0.5 % (0.0-7.0); Hematocrit 32.6 % (36.0-46.0); Hemoglobin 10.6 g/dL (12.2-16.2); Lymphocytes # (auto) 1.9 10 ^3/uL (0.4-5.4); Lymphocytes % (auto) 17.4 % (10.0-50.0); Mean Corpuscular Hemoglobin 28.3 pg (28.0-32.0); Mean Corpuscular Hgb Conc. 32.7 g/dL (32.0-36.0); Mean Corpuscular Volume 86.5 fL (80.0-100.0); Monocytes # (auto) 0.8 10 ^3/uL (0-1.3); Neutrophils # (auto) 8.2 10 ^3/uL (1.6-8.6); Neutrophils % (auto) 74.8 % (37.0-80.0); Red Blood Cells 3.77 10^6/uL (4.0-5.20); Red Cell Distribution Width 14.1 % (11.8-14.3)
[2023-02-21 04:43] LABS: Alanine Aminotransferase 11 U/L (7-40); Albumin 4.5 g/dL (3.2-4.8); Alkaline Phosphatase 134 U/L (46-116); Anion Gap 7 (5-15); Aspartate Aminotransferase 24 U/L (13-40); BUN/Creatinine Ratio 11.1 (10.0-20.0); Bilirubin, Total 0.9 mg/dL (0.2-1.0); Blood Urea Nitrogen 8 mg/dL (9-23); Carbon Dioxide 22 mmol/L (20-30); Chloride 94 mmol/L (98-107); Glucose 113 mg/dL (74-106); Sodium 123 mmol/L (136-145); Total Protein 7.9 g/dL (5.7-8.2)
[2023-02-21 04:49] LABS: INR 1.34 (0.9-1.15); Partial Thromboplastin Time 40.8 SEC (24.5-34.5); Prothrombin Time 13.8 sec (9.3-11.8)
[2023-02-21 05:03] LABS: Urine Bacteria FEW /hpf (None Seen); Urine Blood 2+ /uL (Negative); Urine Clarity HAZY (Clear); Urine Color Yellow (Yellow); Urine Protein, UAD 1+ (Negative); Urine Specific Gravity 1.016 (1.001-1.035); Urine Urobilinogen Normal (Negative); Urine WBC 213 /hpf (0 - 5); Urine WBC Clumps PRESENT /hpf (None Seen)
[2023-02-21] MEDS ORDERED: SODIUM CHLORIDE 0.9% 1,000 ML IV SCH (08:00)
[2023-02-21] MEDS ORDERED: MORPHINE SULFATE INJ 2 MG/ml SYRG IV PRN ×2 (08:00)
[2023-02-21] MEDS ORDERED: NITROGLYCERIN 0.4 MG SL TAB SL PRN (08:00)
[2023-02-21] MEDS ORDERED: ACETAMINOPHEN 325 MG TAB PO PRN (08:00)
[2023-02-21] MEDS ORDERED: ONDANSETRON HCL 4 MG/2 ML VIAL IV PRN (08:00)
[2023-02-21 08:41] LABS: Triglycerides 54 mg/dL (< 150)
[2023-02-21 08:42] LABS: LDL Cholesterol 32 mg/dL (< 100)
[2023-02-21 08:43] LABS: Cholesterol 93 mg/dL (< 200); HDL Cholesterol 48 mg/dL (40-59)
[2023-02-21] MEDS: HYDROcodone-ACET 5/325MG TAB PO PRN ×3 (09:14→22:54)
[2023-02-21] MEDS: cefTRIAXone 1GM/50ML D5W 50 ML IV SCH (09:49)
[2023-02-21] MEDS: AMIODARONE HCL 200 MG TAB PO SCH ×2 (09:50→21:46)
[2023-02-21 10:00] LABS: % Iron Saturation 24.8 % (15-50)
[2023-02-21] MEDS: dilTIAZem 120MG ER CAP PO SCH (10:00)
[2023-02-21] MEDS: LOSARTAN POTASSIUM 25 MG TAB PO SCH (10:00)
[2023-02-21 13:21] LABS: Calcium 9.4 mg/dL (8.5-10.1); Chloride 94 mmol/L (98-107); Potassium 3.8 mmol/L (3.5-5.1); Sodium 125 mmol/L (136-145)
[2023-02-21 13:22] LABS: Anion Gap 8 (5-15); Carbon Dioxide 23 mmol/L (20-30)
[2023-02-21 13:27] LABS: Blood Urea Nitrogen 6 mg/dL (9-23); Glucose 108 mg/dL (74-106)
[2023-02-21 15:50] LABS: Urine Bacteria MOD /hpf (None Seen); Urine Blood 1+ /uL (Negative); Urine Clarity HAZY (Clear); Urine Color Colorless (Yellow); Urine Hyaline Cast FEW /lpf (0 - 2); Urine Mucus FEW (None Seen); Urine Protein, UAD 1+ (Negative); Urine Specific Gravity 1.014 (1.001-1.035); Urine Urobilinogen Normal (Negative); Urine WBC 256 /hpf (0 - 5); Urine WBC Clumps PRESENT /hpf (None Seen); Urine pH 6.5 (5.0-8.0)
[2023-02-21 15:56] LABS: Protein, Urine 73.9 mg/dL (0.0-11.9)
[2023-02-21 15:59] LABS: Creatinine, Urine 39.73 mg/dL (30.0-125.0); Urine Protein/Creatinine Ratio 1.86
[2023-02-21 17:10] LABS: Ferritin 57.6 ng/mL (10-291)
[2023-02-21] MEDS: RIVAROXABAN 20 MG TAB PO SCH (17:58)
[2023-02-21 19:46] LABS: Folate (Folic Acid) > 24.00 ng/mL (>5.38)
[2023-02-21 20:38] LABS: Chloride 95 mmol/L (98-107); Potassium 3.5 mmol/L (3.5-5.1); Sodium 127 mmol/L (136-145)
[2023-02-21 20:39] LABS: Anion Gap 9 (5-15); Calcium 9.4 mg/dL (8.5-10.1); Carbon Dioxide 23 mmol/L (20-30)
[2023-02-21 20:44] LABS: BUN/Creatinine Ratio 11.9 (10.0-20.0); Blood Urea Nitrogen 8 mg/dL (9-23); Glucose 124 mg/dL (74-106)
[2023-02-21] MEDS ORDERED: TEMAZEPAM 15 MG CAP PO ONE (21:00)
[2023-02-21] MEDS: ATORVASTATIN 20 MG TAB PO SCH (21:46)
[2023-02-22 00:22] VITALS: PULSE 116; RESP 18; O2SAT 97
[2023-02-22] MEDS: HYDROcodone-ACET 5/325MG TAB PO PRN ×5 (04:59→22:17)
[2023-02-22 05:00] VITALS: BP 154/76; PULSE 111; RESP 16; TEMP 98.2; O2SAT 97
[2023-02-22 05:10] LABS: Chloride 95 mmol/L (98-107); Potassium 3.6 mmol/L (3.5-5.1); Sodium 125 mmol/L (136-145)
[2023-02-22 05:11] LABS: Anion Gap 9 (5-15); Calcium 9.5 mg/dL (8.5-10.1); Carbon Dioxide 21 mmol/L (20-30)
[2023-02-22 05:16] LABS: Glucose 116 mg/dL (74-106)
[2023-02-22 05:22] LABS: BUN/Creatinine Ratio 7.4 (10.0-20.0); Blood Urea Nitrogen < 5 mg/dL (9-23)
[2023-02-22 05:32] LABS: Basophils # (auto) 0.1 10 ^3/uL (0-0.2); Basophils % (auto) 0.5 % (0.0-2.0); Eosinophils # (auto) 0.1 10 ^3/uL (0-0.8); Hematocrit 32.9 % (36.0-46.0); Hemoglobin 10.8 g/dL (12.2-16.2); Lymphocytes # (auto) 1.9 10 ^3/uL (0.4-5.4); Lymphocytes % (auto) 19.7 % (10.0-50.0); Mean Corpuscular Hemoglobin 27.9 pg (28.0-32.0); Mean Corpuscular Hgb Conc. 32.9 g/dL (32.0-36.0); Monocytes # (auto) 0.8 10 ^3/uL (0-1.3); Monocytes % (auto) 8.2 % (0.0-12.0); Neutrophils % (auto) 70.6 % (37.0-80.0); Nucleated Red Blood Cells % 0.1 %; Red Blood Cells 3.87 10^6/uL (4.0-5.20); White Blood Cell 9.9 10^3/uL (4.4-10.8)
[2023-02-22 08:00] VITALS: BP 127/68; PULSE 94; RESP 18; TEMP 98; O2SAT 96
[2023-02-22] MEDS: dilTIAZem 120MG ER CAP PO SCH (09:29)
[2023-02-22] MEDS: LOSARTAN POTASSIUM 25 MG TAB PO SCH (09:30)
[2023-02-22] MEDS: AMIODARONE HCL 200 MG TAB PO SCH ×2 (09:30→22:17)
[2023-02-22] MEDS: cefTRIAXone 1GM/50ML D5W 50 ML IV SCH (09:30)
[2023-02-22] MEDS: FUROSEMIDE 40 MG TAB PO SCH (13:25)
[2023-02-22] MEDS ORDERED: MELO-335 PO (13:57)
[2023-02-22] MEDS ORDERED: ALPR0.5T7 PO (14:00)
[2023-02-22 14:17] LABS: Urine Bacteria NONE SEEN /hpf (None Seen); Urine Blood 3+ /uL (Negative); Urine Clarity HAZY (Clear); Urine Color Yellow (Yellow); Urine Hyaline Cast FEW /lpf (0 - 2); Urine Mucus FEW (None Seen); Urine Protein, UAD 3+ (Negative); Urine Urobilinogen Normal (Negative); Urine WBC 98 /hpf (0 - 5); Urine pH 6.5 (5.0-8.0)
[2023-02-22] MEDS: RIVAROXABAN 20 MG TAB PO SCH (17:40)
[2023-02-22 22:00] VITALS: BP 144/72; PULSE 123; RESP 16; TEMP 97.6; O2SAT 98
[2023-02-22] MEDS: ATORVASTATIN 20 MG TAB PO SCH (22:17)
[2023-02-23] MEDS: HYDROcodone-ACET 5/325MG TAB PO PRN ×5 (02:16→22:53)
[2023-02-23 05:00] VITALS: BP 107/52; PULSE 119; RESP 16; TEMP 97.6; O2SAT 96
[2023-02-23 06:21] LABS: Basophils # (auto) 0 10 ^3/uL (0-0.2); Basophils % (auto) 0.3 % (0.0-2.0); Eosinophils # (auto) 0.2 10 ^3/uL (0-0.8); Hematocrit 35.1 % (36.0-46.0); Hemoglobin 11.5 g/dL (12.2-16.2); Lymphocytes % (auto) 20.6 % (10.0-50.0); Mean Corpuscular Hemoglobin 28.1 pg (28.0-32.0); Mean Corpuscular Hgb Conc. 32.9 g/dL (32.0-36.0); Mean Corpuscular Volume 85.3 fL (80.0-100.0); Monocytes # (auto) 0.7 10 ^3/uL (0-1.3); Monocytes % (auto) 7.7 % (0.0-12.0); Neutrophils # (auto) 6.8 10 ^3/uL (1.6-8.6); Neutrophils % (auto) 69.4 % (37.0-80.0); Red Blood Cells 4.12 10^6/uL (4.0-5.20); Red Cell Distribution Width 13.9 % (11.8-14.3); White Blood Cell 9.8 10^3/uL (4.4-10.8)
[2023-02-23 06:40] LABS: Chloride 95 mmol/L (98-107); Potassium 3.4 mmol/L (3.5-5.1); Sodium 129 mmol/L (136-145)
[2023-02-23 06:41] LABS: Anion Gap 10 (5-15); Carbon Dioxide 24 mmol/L (20-30)
[2023-02-23 06:42] LABS: Calcium 9.4 mg/dL (8.7-10.4)
[2023-02-23 06:47] LABS: BUN/Creatinine Ratio 12.9 (10.0-20.0); Blood Urea Nitrogen 11 mg/dL (9-23)
[2023-02-23 06:57] LABS: Glucose 114 mg/dL (74-106)
[2023-02-23] MEDS ORDERED: POTASSIUM CHL 20 Meq TABLET PO ONE (07:45)
[2023-02-23 08:00] VITALS: BP 94/56; PULSE 110; RESP 19; TEMP 98.9; O2SAT 97
[2023-02-23 09:00] VITALS: BP 91/42; PULSE 110; RESP 19; TEMP 98.9; O2SAT 97
[2023-02-23] MEDS: cefTRIAXone 1GM/50ML D5W 50 ML IV SCH (09:43)
[2023-02-23] MEDS: AMIODARONE HCL 200 MG TAB PO SCH ×2 (09:45→22:54)
[2023-02-23] MEDS: dilTIAZem 120MG ER CAP PO SCH (09:45)
[2023-02-23] MEDS: LOSARTAN POTASSIUM 25 MG TAB PO SCH (09:48)
[2023-02-23] MEDS: FUROSEMIDE 40 MG TAB PO SCH (09:48)
[2023-02-23 13:30] VITALS: BP 99/52; PULSE 110; RESP 17; TEMP 98.6; O2SAT 98
[2023-02-23] MEDS ORDERED: TRAM50TA2 PO (13:47)
[2023-02-23] MEDS: RIVAROXABAN 20 MG TAB PO SCH (18:12)
[2023-02-23 22:00] VITALS: BP 113/67; PULSE 76; RESP 18; TEMP 97.7; O2SAT 97
[2023-02-23] MEDS: ATORVASTATIN 20 MG TAB PO SCH (22:53)
[2023-02-24 05:17] VITALS: BP 101/86; PULSE 100; RESP 18; TEMP 98.3; O2SAT 93
[2023-02-24 08:00] VITALS: BP 104/57; PULSE 117; RESP 18; TEMP 97.7; O2SAT 96
[2023-02-24 08:55] VITALS: BP 104/57; PULSE 117; RESP 18; TEMP 97.7; O2SAT 96
[2023-02-24] MEDS: cefTRIAXone 1GM/50ML D5W 50 ML IV SCH (10:06)
[2023-02-24] MEDS: AMIODARONE HCL 200 MG TAB PO SCH (10:07)
[2023-02-24] MEDS: HYDROcodone-ACET 5/325MG TAB PO PRN (10:07)
[2023-02-24] MEDS: dilTIAZem 120MG ER CAP PO SCH (10:07)
[2023-02-24] MEDS: FUROSEMIDE 40 MG TAB PO SCH (10:07)
[2023-02-24] MEDS: LOSARTAN POTASSIUM 25 MG TAB PO SCH (10:08)
[2023-02-24 11:46] LABS: Basophils # (auto) 0 10 ^3/uL (0-0.2); Basophils % (auto) 0.4 % (0.0-2.0); Eosinophils # (auto) 0.1 10 ^3/uL (0-0.8); Eosinophils % (auto) 1.3 % (0.0-7.0); Hematocrit 34.6 % (36.0-46.0); Hemoglobin 11.2 g/dL (12.2-16.2); Lymphocytes % (auto) 18.2 % (10.0-50.0); Mean Corpuscular Hemoglobin 27.5 pg (28.0-32.0); Mean Corpuscular Hgb Conc. 32.4 g/dL (32.0-36.0); Mean Corpuscular Volume 84.9 fL (80.0-100.0); Monocytes # (auto) 0.9 10 ^3/uL (0-1.3); Monocytes % (auto) 8.3 % (0.0-12.0); Neutrophils # (auto) 7.9 10 ^3/uL (1.6-8.6); Neutrophils % (auto) 71.8 % (37.0-80.0); Red Blood Cells 4.07 10^6/uL (4.0-5.20)
[2023-02-24 12:06] LABS: Alanine Aminotransferase 17 U/L (7-40); Albumin 4.5 g/dL (3.2-4.8); Alkaline Phosphatase 127 U/L (46-116); Anion Gap 7 (5-15); Aspartate Aminotransferase 22 U/L (13-40); BUN/Creatinine Ratio 19.6 (10.0-20.0); Bilirubin, Total 0.4 mg/dL (0.2-1.0); Blood Urea Nitrogen 18 mg/dL (9-23); Calcium 9.8 mg/dL (8.5-10.1); Carbon Dioxide 24 mmol/L (20-30); Chloride 101 mmol/L (98-107); Glucose 119 mg/dL (74-106); Potassium 4.3 mmol/L (3.5-5.1); Sodium 132 mmol/L (136-145); Total Protein 7.8 g/dL (5.7-8.2)
[2023-02-24 13:00] VITALS: BP 105/65; PULSE 103; RESP 18; TEMP 97.5; O2SAT 97
== END 2023-02-24 13:58 | disposition home health service (06) | DRG 536 ==
LOC: ER 01:58 → EDBD 01:58 → TELE 07:50 → TELE-WESTW 22:30 → WEST WING 02-22 00:41
PROVIDERS: ADMIT Internal Medicine; ATTEND Internal Medicine
DX: S32.511A Fracture of superior rim of right pubis, initial encounter for closed fracture (principal); S32.19XA Other fracture of sacrum, initial encounter for closed fracture; E22.2 Syndrome of inappropriate secretion of antidiuretic hormone; I50.30 Unspecified diastolic (congestive) heart failure; N39.0 Urinary tract infection, site not specified; G62.9 Polyneuropathy, unspecified; D64.9 Anemia, unspecified; W01.0XXA Fall on same level from slipping, tripping and stumbling without subsequent striking against object, initial encounter; R10.2 Pelvic and perineal pain; G89.29 Other chronic pain; I48.91 Unspecified atrial fibrillation; E87.6 Hypokalemia; M54.9 Dorsalgia, unspecified; I11.0 Hypertensive heart disease with heart failure; Z80.51 Family history of malignant neoplasm of kidney; Z86.73 Personal history of transient ischemic attack (TIA), and cerebral infarction without residual deficits; Z87.442 Personal history of urinary calculi; Z88.2 Allergy status to sulfonamides; Y93.89 Activity, other specified; Y92.098 Other place in other non-institutional residence as the place of occurrence of the external cause; Y99.8 Other external cause status
CPT/HCPCS: 36415; 70450; 71045; 71250; 72125; 72128; 72131; 72170; 72192; 74176; 80048; 80053; 80061; 81001; 82570; 82607; 82728; 82746; 83540; 83550; 83615; 83930; 83935; 84156; 84300; 84484; 84550; 85025; 85045; 85610; 85730; 86850; 86900; 86901; 87086; 93306; 97110; 97163; 97530; G0378; J0696

== ENCOUNTER 2023-04-29 13:43 | Inpatient (IN) | payer OTHER ==
[~2023-04-29] VITALS: Ht 157.5 cm; Wt 60.3 kg
[~2023-04-29 13:43] MED LIST changes: +ALPR0.5T7 PO; -CIPR500T4 PO; -HYDR-4795 PO; +MELO-335 PO; -MELO7.5T7 PO; -TEMA15CA2 PO; +TRAM50TA2 PO
[2023-04-29 15:16] VITALS: PULSE 63; RESP 16; O2SAT 97
[2023-04-29] MEDS: ACETAMINOPHEN 325 MG TAB PO ONE (15:19)
[2023-04-29 15:29] LABS: Basophils # (auto) 0 10 ^3/uL (0-0.2); Basophils % (auto) 0.5 % (0.0-2.0); Eosinophils # (auto) 0.3 10 ^3/uL (0-0.8); Eosinophils % (auto) 5.1 % (0.0-7.0); Hematocrit 27.7 % (36.0-46.0); Hemoglobin 8.9 g/dL (12.2-16.2); Lymphocytes # (auto) 1.6 10 ^3/uL (0.4-5.4); Lymphocytes % (auto) 23.1 % (10.0-50.0); Mean Corpuscular Hemoglobin 27.4 pg (28.0-32.0); Mean Corpuscular Hgb Conc. 32.1 g/dL (32.0-36.0); Mean Corpuscular Volume 85.3 fL (80.0-100.0); Monocytes # (auto) 0.6 10 ^3/uL (0-1.3); Monocytes % (auto) 8.4 % (0.0-12.0); Neutrophils # (auto) 4.2 10 ^3/uL (1.6-8.6); Neutrophils % (auto) 62.9 % (37.0-80.0); Nucleated Red Blood Cells % 0.1 %; Red Blood Cells 3.24 10^6/uL (4.0-5.20); Red Cell Distribution Width 15.8 % (11.8-14.3); White Blood Cell 6.7 10^3/uL (4.4-10.8)
[2023-04-29] MEDS: HYDROmorphone HCL 2 MG/ML VL/or syr IM ONE (15:34)
[2023-04-29 15:52] LABS: Alanine Aminotransferase 11 U/L (7-40); Albumin 4.3 g/dL (3.2-4.8); Alkaline Phosphatase 97 U/L (46-116); Anion Gap 4 (5-15); Aspartate Aminotransferase 15 U/L (13-40); BUN/Creatinine Ratio 19.5 (10.0-20.0); Bilirubin, Total 0.4 mg/dL (0.2-1.0); Blood Urea Nitrogen 23 mg/dL (9-23); Carbon Dioxide 26 mmol/L (20-30); Chloride 101 mmol/L (98-107); Glucose 114 mg/dL (74-106); Potassium 4.7 mmol/L (3.5-5.1); Sodium 131 mmol/L (136-145); Total Protein 7.7 g/dL (5.7-8.2)
[2023-04-29 19:12] LABS: Urine Bacteria FEW /hpf (None Seen); Urine Blood TRACE /uL (Negative); Urine Clarity HAZY (Clear); Urine Color Colorless (Yellow); Urine Protein, UAD Negative (Negative); Urine WBC 181 /hpf (0 - 5); Urine pH 5.5 (5.0-8.0)
[2023-04-29 19:30] VITALS: PULSE 89; RESP 16; O2SAT 94
[2023-04-29] MEDS ORDERED: DOCUSATE SOD 100 MG CAP PO PRN (21:45)
[2023-04-29] MEDS ORDERED: ACETAMINOPHEN 325 MG TAB PO PRN (21:45)
[2023-04-29] MEDS ORDERED: MORPHINE SULFATE INJ 2 MG/ml SYRG IV PRN (22:45)
[2023-04-29] MEDS ORDERED: NITROGLYCERIN 0.4 MG SL TAB SL PRN (22:45)
[2023-04-29] MEDS: SODIUM CHLORIDE 0.9% 1,000 ML IV SCH (22:54)
[2023-04-29] MEDS: HYDROcodone-ACET 5/325MG TAB PO PRN (23:22)
[2023-04-30] VITALS (9 sets, daily range): BP systolic 134–177; BP diastolic 59–98; PULSE 75–109; RESP 17–21; TEMP 97.8–100.1; O2SAT 0–98
[2023-04-30] MEDS: MORPHINE SULFATE INJ 2 MG/ml SYRG IV PRN (02:31)
[2023-04-30] MEDS: MULTIPLE VITAMIN TAB PO SCH (09:21)
[2023-04-30] MEDS ORDERED: ENOXAPARIN SOD 40 MG/0.4 ML SYRINGE SC SCH (10:00)
[2023-04-30 10:41] LABS: Basophils # (auto) 0 10 ^3/uL (0-0.2); Eosinophils # (auto) 0.2 10 ^3/uL (0-0.8); Mean Corpuscular Hemoglobin 26.9 pg (28.0-32.0); Monocytes # (auto) 0.4 10 ^3/uL (0-1.3); Neutrophils # (auto) 4.4 10 ^3/uL (1.6-8.6); Nucleated Red Blood Cells % 0.1 %
[2023-04-30 10:43] LABS: Basophils % (auto) 0.6 % (0.0-2.0); Eosinophils % (auto) 2.8 % (0.0-7.0); Hematocrit 28.6 % (36.0-46.0); Lymphocytes # (auto) 1.4 10 ^3/uL (0.4-5.4); Lymphocytes % (auto) 21.6 % (10.0-50.0); Mean Corpuscular Hgb Conc. 31.5 g/dL (32.0-36.0); Mean Corpuscular Volume 85.4 fL (80.0-100.0); Monocytes % (auto) 6.5 % (0.0-12.0); Neutrophils % (auto) 68.5 % (37.0-80.0); Red Blood Cells 3.34 10^6/uL (4.0-5.20); Red Cell Distribution Width 15.9 % (11.8-14.3); White Blood Cell 6.4 10^3/uL (4.4-10.8)
[2023-04-30 10:58] LABS: Albumin 4.1 g/dL (3.2-4.8); Alkaline Phosphatase 97 U/L (46-116); Anion Gap 6 (5-15); Aspartate Aminotransferase 21 U/L (13-40); BUN/Creatinine Ratio 14.1 (10.0-20.0); Bilirubin, Total 0.4 mg/dL (0.2-1.0); Blood Urea Nitrogen 12 mg/dL (9-23); Calcium 9.3 mg/dL (8.5-10.1); Carbon Dioxide 24 mmol/L (20-30); Chloride 107 mmol/L (98-107); Glucose 106 mg/dL (74-106); Potassium 4.4 mmol/L (3.5-5.1); Sodium 137 mmol/L (136-145); Total Protein 7.6 g/dL (5.7-8.2)
[2023-04-30 10:59] LABS: Alanine Aminotransferase < 9 U/L (7-40)
[2023-04-30] MEDS: GABAPENTIN 300 MG CAP PO SCH (12:46)
[2023-04-30] MEDS: RIVAROXABAN 20 MG TAB PO SCH (12:47)
[2023-04-30] MEDS: CITALOPRAM HYDROBR 20 MG TAB PO SCH (12:47)
[2023-04-30] MEDS: cefTRIAXone 1GM/50ML D5W 50 ML IV ONE (12:47)
[2023-04-30] MEDS ORDERED: PATIENTS OWN MEDICATION (Gabapentin 1 TAB) PO SCH (14:00)
[2023-04-30] MEDS: amLODIPine BESYLATE 5 MG TAB PO SCH (18:42)
[2023-04-30] MEDS: AMIODARONE HCL 200 MG TAB PO SCH (21:26)
[2023-04-30] MEDS: hydrALAZINE HCL 20 MG/ML VL IV PRN (21:50)
[2023-04-30 22:22] LABS: Basophils # (auto) 0.1 10 ^3/uL (0-0.2); Basophils % (auto) 0.6 % (0.0-2.0); Eosinophils # (auto) 0 10 ^3/uL (0-0.8); Eosinophils % (auto) 0.2 % (0.0-7.0); Hematocrit 31.3 % (36.0-46.0); Hemoglobin 10.2 g/dL (12.2-16.2); Lymphocytes # (auto) 1.7 10 ^3/uL (0.4-5.4); Lymphocytes % (auto) 14.6 % (10.0-50.0); Mean Corpuscular Hemoglobin 27.4 pg (28.0-32.0); Mean Corpuscular Hgb Conc. 32.4 g/dL (32.0-36.0); Mean Corpuscular Volume 84.6 fL (80.0-100.0); Monocytes # (auto) 0.5 10 ^3/uL (0-1.3); Neutrophils # (auto) 9.5 10 ^3/uL (1.6-8.6); Neutrophils % (auto) 80.6 % (37.0-80.0); Red Cell Distribution Width 15.6 % (11.8-14.3); White Blood Cell 11.8 10^3/uL (4.4-10.8)
[2023-04-30 23:00] LABS: INR 1.37 (0.9-1.15); Partial Thromboplastin Time 36.4 SEC (24.5-34.5); Prothrombin Time 14.1 sec (9.3-11.8)
[2023-04-30] MEDS: ONDANSETRON HCL 4 MG/2 ML VIAL IV PRN (23:58)
[2023-05-01] VITALS (7 sets, daily range): BP systolic 117–155; BP diastolic 53–87; PULSE 103–114; RESP 17–20; TEMP 98.3–99.7; O2SAT 90–97
[2023-05-01] MEDS: CEPHALEXIN 250 MG CAP PO ONE (01:15)
[2023-05-01 09:42] LABS: Chloride 104 mmol/L (98-107); Potassium 3.2 mmol/L (3.5-5.1); Sodium 137 mmol/L (136-145)
[2023-05-01 09:43] LABS: Anion Gap 7 (5-15); Calcium 8.9 mg/dL (8.5-10.1); Carbon Dioxide 26 mmol/L (20-30)
[2023-05-01] MEDS: cefTRIAXone 1GM/50ML D5W 50 ML IV SCH (09:45)
[2023-05-01 09:48] LABS: BUN/Creatinine Ratio 13.9 (10.0-20.0); Blood Urea Nitrogen 10 mg/dL (9-23); Glucose 121 mg/dL (74-106)
[2023-05-01 09:59] LABS: Basophils # (auto) 0 10 ^3/uL (0-0.2); Basophils % (auto) 0.3 % (0.0-2.0); Eosinophils # (auto) 0 10 ^3/uL (0-0.8); Eosinophils % (auto) 0.1 % (0.0-7.0); Hematocrit 26.5 % (36.0-46.0); Hemoglobin 8.6 g/dL (12.2-16.2); Lymphocytes # (auto) 1.7 10 ^3/uL (0.4-5.4); Lymphocytes % (auto) 16.7 % (10.0-50.0); Mean Corpuscular Hemoglobin 27.2 pg (28.0-32.0); Mean Corpuscular Hgb Conc. 32.3 g/dL (32.0-36.0); Mean Corpuscular Volume 84.1 fL (80.0-100.0); Monocytes # (auto) 0.7 10 ^3/uL (0-1.3); Monocytes % (auto) 6.8 % (0.0-12.0); Neutrophils # (auto) 7.8 10 ^3/uL (1.6-8.6); Neutrophils % (auto) 76.1 % (37.0-80.0); Red Blood Cells 3.15 10^6/uL (4.0-5.20); Red Cell Distribution Width 15.5 % (11.8-14.3); White Blood Cell 10.2 10^3/uL (4.4-10.8)
[2023-05-01] MEDS ORDERED: RIVAROXABAN 20 MG TAB PO SCH (10:00)
[2023-05-01] MEDS: PANTOPRAZOLE 40 MG/10 ML VIAL INJ IV SCH (13:52)
[2023-05-01] MEDS ORDERED: PANTOPRAZOLE 40 MG/10 ML VIAL INJ IV SCH (22:00)
[2023-05-02 05:00] VITALS: BP 111/60; PULSE 109; RESP 18; TEMP 98.3; O2SAT 94
[2023-05-02 06:37] LABS: Basophils # (auto) 0 10 ^3/uL (0-0.2); Basophils % (auto) 0.5 % (0.0-2.0); Eosinophils # (auto) 0.1 10 ^3/uL (0-0.8); Eosinophils % (auto) 0.7 % (0.0-7.0); Hematocrit 26.4 % (36.0-46.0); Hemoglobin 8.6 g/dL (12.2-16.2); Lymphocytes # (auto) 1.9 10 ^3/uL (0.4-5.4); Lymphocytes % (auto) 21.1 % (10.0-50.0); Mean Corpuscular Hemoglobin 27.5 pg (28.0-32.0); Mean Corpuscular Hgb Conc. 32.6 g/dL (32.0-36.0); Mean Corpuscular Volume 84.4 fL (80.0-100.0); Monocytes # (auto) 0.7 10 ^3/uL (0-1.3); Monocytes % (auto) 8.4 % (0.0-12.0); Neutrophils # (auto) 6.1 10 ^3/uL (1.6-8.6); Neutrophils % (auto) 69.3 % (37.0-80.0); Nucleated Red Blood Cells % 0.1 %; Red Blood Cells 3.13 10^6/uL (4.0-5.20); Red Cell Distribution Width 15.8 % (11.8-14.3); White Blood Cell 8.8 10^3/uL (4.4-10.8)
[2023-05-02 06:44] LABS: Alanine Aminotransferase 11 U/L (7-40); Albumin 3.9 g/dL (3.2-4.8); Alkaline Phosphatase 86 U/L (46-116); Anion Gap 8 (5-15); Aspartate Aminotransferase 24 U/L (13-40); BUN/Creatinine Ratio 14.3 (10.0-20.0); Bilirubin, Total 0.6 mg/dL (0.2-1.0); Blood Urea Nitrogen 12 mg/dL (9-23); Calcium 9.4 mg/dL (8.5-10.1); Carbon Dioxide 25 mmol/L (20-30); Chloride 103 mmol/L (98-107); Glucose 106 mg/dL (74-106); Potassium 3.4 mmol/L (3.5-5.1); Sodium 136 mmol/L (136-145); Total Protein 7.2 g/dL (5.7-8.2)
[2023-05-02 08:00] VITALS: BP 118/57; PULSE 93; PULSE 96; RESP 16; RESP 18; TEMP 98.6; O2SAT 95; O2SAT 96
[2023-05-02] MEDS: PANTOPRAZOLE 40 MG/10 ML VIAL INJ IV SCH (09:08)
[2023-05-02 13:00] VITALS: BP 118/59; PULSE 110; RESP 16; TEMP 98.3; O2SAT 98
[2023-05-02] MEDS: ERTAPENEM SOD INJ 1 GM in SODIUM CHL 0.9% 50 ML IV ONE (15:06)
[2023-05-02 17:00] VITALS: BP 104/50; PULSE 80; RESP 16; TEMP 98.2; O2SAT 93
[2023-05-02 20:00] VITALS: PULSE 97; PULSE 98; RESP 18; O2SAT 95
[2023-05-02 22:00] VITALS: BP 132/71; PULSE 98; RESP 18; TEMP 98.7; O2SAT 95
[2023-05-03] MEDS: TEMAZEPAM 15 MG CAP PO ONE (00:08)
[2023-05-03 05:00] VITALS: BP 117/52; PULSE 82; RESP 20; TEMP 98.4; O2SAT 97
[2023-05-03 06:19] LABS: Basophils # (auto) 0.1 10 ^3/uL (0-0.2); Eosinophils # (auto) 0.2 10 ^3/uL (0-0.8); Lymphocytes # (auto) 1.9 10 ^3/uL (0.4-5.4); Monocytes # (auto) 0.6 10 ^3/uL (0-1.3); Monocytes % (auto) 8.8 % (0.0-12.0)
[2023-05-03 06:23] LABS: Basophils % (auto) 0.7 % (0.0-2.0); Eosinophils % (auto) 2.7 % (0.0-7.0); Hematocrit 25.4 % (36.0-46.0); Hemoglobin 8.4 g/dL (12.2-16.2); Lymphocytes % (auto) 26.8 % (10.0-50.0); Mean Corpuscular Hgb Conc. 32.9 g/dL (32.0-36.0); Mean Corpuscular Volume 85.1 fL (80.0-100.0); Neutrophils # (auto) 4.3 10 ^3/uL (1.6-8.6); Red Blood Cells 2.99 10^6/uL (4.0-5.20); Red Cell Distribution Width 15.7 % (11.8-14.3); White Blood Cell 7.1 10^3/uL (4.4-10.8)
[2023-05-03 06:36] LABS: Albumin 3.9 g/dL (3.2-4.8); Alkaline Phosphatase 84 U/L (46-116); Anion Gap 6 (5-15); Aspartate Aminotransferase 25 U/L (13-40); BUN/Creatinine Ratio 13.3 (10.0-20.0); Bilirubin, Total 0.5 mg/dL (0.2-1.0); Blood Urea Nitrogen 11 mg/dL (9-23); Calcium 9.4 mg/dL (8.5-10.1); Carbon Dioxide 26 mmol/L (20-30); Chloride 105 mmol/L (98-107); Glucose 95 mg/dL (74-106); Potassium 3.4 mmol/L (3.5-5.1); Sodium 137 mmol/L (136-145); Total Protein 7.1 g/dL (5.7-8.2)
[2023-05-03 06:49] LABS: Alanine Aminotransferase 9 U/L (7-40)
[2023-05-03 08:00] VITALS: PULSE 105; PULSE 81; RESP 18; O2SAT 95
[2023-05-03 09:00] VITALS: BP 128/70; PULSE 86; RESP 18; TEMP 97.6; O2SAT 97
[2023-05-03] MEDS: ERTAPENEM SOD INJ 1 GM in SODIUM CHL 0.9% 50 ML IV SCH (09:17)
[2023-05-03 13:00] VITALS: BP 107/60; PULSE 100; RESP 14; TEMP 98; O2SAT 96
[2023-05-03] MEDS: POTASSIUM CHL 20 Meq TABLET PO ONE (13:26)
[2023-05-03 13:54] VITALS: BP 128/70
[2023-05-03 16:51] VITALS: BP 101/66; PULSE 77; RESP 16; TEMP 97.9; O2SAT 99
== END 2023-05-03 17:16 | DRG 536 ==
LOC: ER 13:43 → TELE 22:37 → TELE-WESTW 23:45 → WEST WING 04-30 22:37
PROVIDERS: ADMIT Nurse Practitioner Family; ATTEND Internal Medicine
PROC: 05HA33Z Insertion of Infusion Device into Left Brachial Vein, Percutaneous Approach (ICD-10-PCS; principal; 2023-05-03)
PROC: B54NZZA Ultrasonography of Left Upper Extremity Veins, Guidance (ICD-10-PCS; 2023-05-03)
DX: S32.591A Other specified fracture of right pubis, initial encounter for closed fracture (principal); E87.1 Hypo-osmolality and hyponatremia; I48.20 Chronic atrial fibrillation, unspecified; N39.0 Urinary tract infection, site not specified; Z16.12 Extended spectrum beta lactamase (ESBL) resistance; G62.9 Polyneuropathy, unspecified; R04.0 Epistaxis; I10 Essential (primary) hypertension; W01.0XXA Fall on same level from slipping, tripping and stumbling without subsequent striking against object, initial encounter; I08.1 Rheumatic disorders of both mitral and tricuspid valves; Z53.20 Procedure and treatment not carried out because of patient's decision for unspecified reasons; Z86.73 Personal history of transient ischemic attack (TIA), and cerebral infarction without residual deficits; Z88.2 Allergy status to sulfonamides; Z79.01 Long term (current) use of anticoagulants; Z87.442 Personal history of urinary calculi; Z80.51 Family history of malignant neoplasm of kidney; Y93.89 Activity, other specified; Y92.89 Other specified places as the place of occurrence of the external cause; Y99.8 Other external cause status
CPT/HCPCS: 36415; 71045; 73080; 73502; 73562; 80048; 80053; 81001; 82270; 83605; 84484; 85025; 85610; 85730; 86850; 86900; 86901; 87040; 87086; 87088; 87186; 93005; 96372; 97110; 97116; 97163; 97530; C9113; G0378; J1335; J2405

== ENCOUNTER 2023-05-24 12:23 | Emergency (ER) | payer OTHER ==
[~2023-05-24] VITALS: Ht 157.5 cm; Wt 59.0 kg
[~2023-05-24 12:23] MED LIST changes: -TRAM50TA2 PO
[2023-05-24 13:23] LABS: Basophils # (auto) 0 10 ^3/uL (0-0.2); Eosinophils # (auto) 0.1 10 ^3/uL (0-0.8); White Blood Cell 8.6 10^3/uL (4.4-10.8)
[2023-05-24 13:25] LABS: Basophils % (auto) 0.2 % (0.0-2.0); Hematocrit 24.9 % (36.0-46.0); Hemoglobin 7.9 g/dL (12.2-16.2); Lymphocytes % (auto) 11.2 % (10.0-50.0); Mean Corpuscular Hemoglobin 27.4 pg (28.0-32.0); Mean Corpuscular Hgb Conc. 31.9 g/dL (32.0-36.0); Mean Corpuscular Volume 85.8 fL (80.0-100.0); Monocytes # (auto) 0.6 10 ^3/uL (0-1.3); Monocytes % (auto) 7.2 % (0.0-12.0); Neutrophils # (auto) 6.9 10 ^3/uL (1.6-8.6); Neutrophils % (auto) 80.4 % (37.0-80.0); Nucleated Red Blood Cells % 0.1 %; Red Blood Cells 2.91 10^6/uL (4.0-5.20); Red Cell Distribution Width 15.7 % (11.8-14.3)
[2023-05-24 13:35] LABS: Chloride 99 mmol/L (98-107); Potassium 4.5 mmol/L (3.5-5.1); Sodium 129 mmol/L (136-145)
[2023-05-24 13:36] LABS: Anion Gap 5 (5-15); Calcium 9.2 mg/dL (8.5-10.1); Carbon Dioxide 25 mmol/L (20-30)
[2023-05-24 13:41] LABS: BUN/Creatinine Ratio 22.6 (10.0-20.0); Blood Urea Nitrogen 28 mg/dL (9-23); Glucose 102 mg/dL (74-106)
[2023-05-24 14:19] LABS: Urine Bacteria MANY /hpf (None Seen); Urine Blood 2+ /uL (Negative); Urine Clarity HAZY (Clear); Urine Color Yellow (Yellow); Urine Hyaline Cast FEW /lpf (0 - 2); Urine Mucus FEW (None Seen); Urine Protein, UAD TRACE (Negative); Urine Specific Gravity 1.016 (1.001-1.035); Urine Urobilinogen Normal (Negative); Urine WBC 4 /hpf (0 - 5)
[2023-05-24] MEDS: SODIUM CHLORIDE 0.9% 500 ML IV ONE (21:00)
[2023-05-24 22:32] VITALS: BP 119/56; TEMP 98.1
[2023-05-24 22:36] VITALS: PULSE 61; RESP 18; O2SAT 93
== END 2023-05-24 22:42 | disposition home or self-care (01) ==
LOC: ER 12:23
DX: S32.511A Fracture of superior rim of right pubis, initial encounter for closed fracture (principal); R53.1 Weakness; I10 Essential (primary) hypertension; I48.91 Unspecified atrial fibrillation; E78.5 Hyperlipidemia, unspecified; Z86.73 Personal history of transient ischemic attack (TIA), and cerebral infarction without residual deficits; Z87.442 Personal history of urinary calculi; Z98.890 Other specified postprocedural states; Z88.8 Allergy status to other drugs, medicaments and biological substances; Z79.899 Other long term (current) drug therapy; W18.39XA Other fall on same level, initial encounter; Y93.89 Activity, other specified; Y92.89 Other specified places as the place of occurrence of the external cause; Y99.8 Other external cause status
CPT/HCPCS: 36415; 72192; 80048; 81001; 85025; 93005; 96360; 99284; J7030

== ENCOUNTER 2023-06-29 13:12 | Inpatient (IN) | payer OTHER ==
[~2023-06-29] VITALS: Ht 162.6 cm; Wt 61.0 kg
[~2023-06-29 13:12] MED LIST changes: -MELO-335 PO; +MELO15TA29 PO
[2023-06-29 14:32] LABS: Basophils # (auto) 0 10 ^3/uL (0-0.2); Basophils % (auto) 0.4 % (0.0-2.0); Eosinophils # (auto) 0.2 10 ^3/uL (0-0.8); Hemoglobin 9.2 g/dL (12.2-16.2); Lymphocytes # (auto) 1.1 10 ^3/uL (0.4-5.4); Lymphocytes % (auto) 20.6 % (10.0-50.0); Mean Corpuscular Hemoglobin 26.9 pg (28.0-32.0); Mean Corpuscular Hgb Conc. 31.8 g/dL (32.0-36.0); Mean Corpuscular Volume 84.8 fL (80.0-100.0); Monocytes # (auto) 0.4 10 ^3/uL (0-1.3); Monocytes % (auto) 6.5 % (0.0-12.0); Neutrophils # (auto) 3.8 10 ^3/uL (1.6-8.6); Neutrophils % (auto) 69.5 % (37.0-80.0); Red Blood Cells 3.42 10^6/uL (4.0-5.20); Red Cell Distribution Width 17.4 % (11.8-14.3); White Blood Cell 5.5 10^3/uL (4.4-10.8)
[2023-06-29] MEDS: ACETAMINOPHEN 500 MG TAB PO ONE (14:39)
[2023-06-29 14:48] LABS: Alanine Aminotransferase 16 U/L (7-40); Albumin 4.2 g/dL (3.2-4.8); Alkaline Phosphatase 99 U/L (46-116); Anion Gap 3 (5-15); Aspartate Aminotransferase 23 U/L (13-40); BUN/Creatinine Ratio 24.6 (10.0-20.0); Blood Alcohol < 3.0 mg/dL (<10); Blood Urea Nitrogen 30 mg/dL (9-23); Calcium 9.2 mg/dL (8.5-10.1); Carbon Dioxide 26 mmol/L (20-30); Chloride 103 mmol/L (98-107); Glucose 135 mg/dL (74-106); INR 1.51 (0.9-1.15); Partial Thromboplastin Time 42.9 SEC (24.5-34.5); Potassium 5.4 mmol/L (3.5-5.1); Prothrombin Time 15.4 sec (9.3-11.8); Sodium 132 mmol/L (136-145)
[2023-06-29 14:49] LABS: Bilirubin, Total 0.4 mg/dL (0.2-1.0); Total Protein 7.3 g/dL (5.7-8.2)
[2023-06-29 18:24] LABS: Urine Bacteria MANY /hpf (None Seen); Urine Blood 3+ /uL (Negative); Urine Clarity Ex.Turbid (Clear); Urine Mucus FEW (None Seen); Urine Protein, UAD 1+ (Negative); Urine Specific Gravity 1.011 (1.001-1.035); Urine Urobilinogen Normal (Negative); Urine WBC 3643 /hpf (0 - 5); Urine WBC Clumps PRESENT /hpf (None Seen); Urine pH 5.5 (5.0-9.0)
[2023-06-29 18:27] LABS: Urine Color Yellow (Yellow)
[2023-06-29 19:44] VITALS: PULSE 80; RESP 13; O2SAT 95
[2023-06-29] MEDS: HYDROcodone-ACET 10/325MG TAB PO ONE (20:21)
[2023-06-29] MEDS ORDERED: ONDANSETRON HCL 4 MG/2 ML VIAL IV PRN ×2 (20:45→21:00)
[2023-06-29] MEDS ORDERED: SODIUM ZIRCONIUM CYCL 10 GM PAK PO ONE (20:45)
[2023-06-29] MEDS ORDERED: ACETAMINOPHEN 325 MG TAB PO PRN ×2 (20:45→21:00)
[2023-06-29] MEDS: SODIUM ZIRCONIUM CYCL 10 GM PAK PO ONE (21:54)
[2023-06-29] MEDS: AMIODARONE HCL 200 MG TAB PO SCH (21:55)
[2023-06-29] MEDS: dilTIAZem HCL 60 MG TAB PO SCH (21:55)
[2023-06-29] MEDS: ATORVASTATIN 20 MG TAB PO SCH (21:55)
[2023-06-29] MEDS ORDERED: ATORVASTATIN 20 MG TAB PO SCH (22:00)
[2023-06-29] MEDS ORDERED: AMIODARONE HCL 200 MG TAB PO SCH (22:00)
[2023-06-29] MEDS ORDERED: dilTIAZem HCL 60 MG TAB PO SCH (22:00)
[2023-06-29] MEDS: HYDROcodone-ACET 5/325MG TAB PO PRN (23:53)
[2023-06-30] VITALS (7 sets, daily range): BP systolic 96–154; BP diastolic 53–78; PULSE 17–95; RESP 16–20; TEMP 95–98.8; O2SAT 92–99
[2023-06-30 06:01] LABS: Chloride 105 mmol/L (98-107); Potassium 4.5 mmol/L (3.5-5.1); Sodium 133 mmol/L (136-145)
[2023-06-30 06:02] LABS: Anion Gap 3 (5-15); Calcium 8.9 mg/dL (8.7-10.4); Carbon Dioxide 25 mmol/L (20-30)
[2023-06-30 06:07] LABS: BUN/Creatinine Ratio 18.7 (10.0-20.0); Blood Urea Nitrogen 17 mg/dL (9-23); Glucose 92 mg/dL (74-106)
[2023-06-30] MEDS: HYDROcodone-ACET 5/325MG TAB PO PRN (06:24)
[2023-06-30 07:39] LABS: Basophils # (auto) 0 10 ^3/uL (0-0.2); Eosinophils # (auto) 0.3 10 ^3/uL (0-0.8); Lymphocytes # (auto) 1.9 10 ^3/uL (0.4-5.4); Mean Corpuscular Hgb Conc. 31.2 g/dL (32.0-36.0); Monocytes # (auto) 0.6 10 ^3/uL (0-1.3)
[2023-06-30 07:41] LABS: Basophils % (auto) 0.6 % (0.0-2.0); Eosinophils % (auto) 5.5 % (0.0-7.0); Hematocrit 26.7 % (36.0-46.0); Hemoglobin 8.4 g/dL (12.2-16.2); Lymphocytes % (auto) 32.3 % (10.0-50.0); Mean Corpuscular Hemoglobin 26.5 pg (28.0-32.0); Mean Corpuscular Volume 84.9 fL (80.0-100.0); Monocytes % (auto) 10.3 % (0.0-12.0); Neutrophils # (auto) 3.1 10 ^3/uL (1.6-8.6); Neutrophils % (auto) 51.3 % (37.0-80.0); Nucleated Red Blood Cells % 0.2 %; Red Blood Cells 3.15 10^6/uL (4.0-5.20); Red Cell Distribution Width 17.7 % (11.8-14.3)
[2023-06-30 07:48] LABS: CRP High Sensitivity 0.47 mg/dL (<1.0)
[2023-06-30 07:59] LABS: Magnesium 1.8 mg/dL (1.6-2.6)
[2023-06-30] MEDS ORDERED: RIVAROXABAN 15 MG TAB PO SCH (10:00)
[2023-06-30] MEDS: ERTAPENEM SOD INJ 1 GM in SODIUM CHL 0.9% 50 ML IV SCH (10:00)
[2023-06-30] MEDS: SODIUM CHLORIDE 0.9% 1,000 ML IV ONE ×2 (10:00→15:45)
[2023-06-30] MEDS ORDERED: PATIENTS OWN MEDICATION (xarelto 20 MG) PO SCH (10:00)
[2023-06-30] MEDS: LACTULOSE 20Gm/30ML SOLN PO ONE (10:08)
[2023-06-30 10:21] LABS: % Iron Saturation 12.9 % (15-50)
[2023-06-30 10:31] LABS: Free T3 2.38 pg/mL (2.3-4.2)
[2023-06-30 10:32] LABS: Free T4 (Free Thyroxine) 1.29 ng/dL (0.89-1.76)
[2023-06-30 10:42] LABS: Ferritin 27.4 ng/mL (10-291)
[2023-06-30 10:56] LABS: Folate (Folic Acid) 26.49 ng/mL (>5.38)
[2023-06-30] MEDS: IRON SUCROSE COMPLEX 100 ML IV SCH (12:10)
[2023-06-30] MEDS: CYANOCOBALAMIN (B-12) 1000 MCG/1 ML VIAL IM ONE (12:11)
[2023-06-30] MEDS ORDERED: GABA800T97 PO (15:22)
[2023-06-30] MEDS: MELATONIN 5 MG TAB PO ONE ×2 (23:20→23:21)
[2023-07-01 05:00] VITALS: BP 132/70; PULSE 81; RESP 17; TEMP 98.6; O2SAT 95
[2023-07-01 09:07] VITALS: BP 130/76; PULSE 92; RESP 18; TEMP 98.4; O2SAT 96
[2023-07-01] MEDS: CYANOCOBALAMIN 500 MCG TAB PO SCH (10:04)
[2023-07-01 10:14] LABS: Hematocrit 28.1 % (36.0-46.0); Hemoglobin 9.2 g/dL (12.2-16.2)
[2023-07-01 10:23] LABS: Anion Gap 3 (5-15); Carbon Dioxide 25 mmol/L (20-30); Chloride 104 mmol/L (98-107); Sodium 132 mmol/L (136-145)
[2023-07-01 10:24] LABS: Calcium 9.4 mg/dL (8.7-10.4)
[2023-07-01 10:29] LABS: BUN/Creatinine Ratio 8.6 (10.0-20.0); Glucose 105 mg/dL (74-106); Magnesium 1.6 mg/dL (1.6-2.6)
[2023-07-01 10:33] LABS: Blood Urea Nitrogen 6 mg/dL (9-23)
[2023-07-01 13:00] VITALS: BP 148/78; PULSE 95; RESP 20; TEMP 98; O2SAT 96
[2023-07-01] MEDS ORDERED: NITR-52 PO (13:05)
[2023-07-01] MEDS ORDERED: FER325T PO (13:05)
[2023-07-01] MEDS ORDERED: CYAN500T3 PO (13:05)
[2023-07-01] MEDS: CITALOPRAM HYDROBR 20 MG TAB PO ONE (15:34)
[2023-07-01 16:51] VITALS: BP 163/86; PULSE 99; RESP 20; TEMP 98.2; O2SAT 98
[2023-07-01 20:00] VITALS: BP 130/77; PULSE 96; RESP 17; TEMP 98.5; O2SAT 97
[2023-07-01 21:00] VITALS: BP 130/77; PULSE 96; RESP 17; TEMP 98.5; O2SAT 97
[2023-07-01] MEDS ORDERED: MELATONIN 5 MG TAB PO ONE (23:00)
[2023-07-02] VITALS (7 sets, daily range): BP systolic 126–146; BP diastolic 64–81; PULSE 88–99; RESP 17–20; TEMP 37.1; O2SAT 94–100
[2023-07-02] MEDS: CITALOPRAM HYDROBR 20 MG TAB PO SCH (10:50)
[2023-07-02] MEDS: LORazepam 0.5 MG TAB PO PRN (15:00)
[2023-07-02] MEDS: LINEZOLID 600MG TABLET PO SCH (15:00)
== END 2023-07-02 18:55 | disposition home health service (06) | DRG 125 ==
LOC: ER 13:12 → OVERFLOW 20:50 → ER 20:50 → EAST 06-30 00:36
PROVIDERS: ADMIT Internal Medicine; ATTEND Internal Medicine
DX: S05.12XA Contusion of eyeball and orbital tissues, left eye, initial encounter (principal); N17.9 Acute kidney failure, unspecified; D68.9 Coagulation defect, unspecified; N39.0 Urinary tract infection, site not specified; N18.2 Chronic kidney disease, stage 2 (mild); I48.91 Unspecified atrial fibrillation; R29.6 Repeated falls; I12.9 Hypertensive chronic kidney disease with stage 1 through stage 4 chronic kidney disease, or unspecified chronic kidney disease; E87.5 Hyperkalemia; D64.9 Anemia, unspecified; E78.5 Hyperlipidemia, unspecified; Z90.49 Acquired absence of other specified parts of digestive tract; Z86.73 Personal history of transient ischemic attack (TIA), and cerebral infarction without residual deficits; Z80.51 Family history of malignant neoplasm of kidney; Z87.442 Personal history of urinary calculi; W06.XXXA Fall from bed, initial encounter; Y93.89 Activity, other specified; Y92.89 Other specified places as the place of occurrence of the external cause; Y99.8 Other external cause status
CPT/HCPCS: 36415; 70450; 71250; 72125; 73030; 73560; 74176; 78582; 80048; 80053; 80061; 80320; 81001; 82270; 82306; 82607; 82728; 82746; 83540; 83550; 83605; 83735; 83880; 84439; 84443; 84481; 84484; 85014; 85018; 85025; 85379; 85610; 85730; 86141; 87086; 87088; 87186; 93005; 93886; 93970; 97110; 97116; 97163; G0378; J1335; J1756

== ENCOUNTER 2023-07-29 15:28 | Emergency (ER) | payer OTHER ==
[~2023-07-29] VITALS: Ht 162.6 cm; Wt 56.6 kg
[~2023-07-29 15:28] MED LIST changes: +CYAN500T3 PO; +FER325T PO; -GABA-339 PO; +GABA800T97 PO; +NITR-52 PO
[2023-07-29 15:45] VITALS: BP 106/49; PULSE 104; RESP 16; O2SAT 97
[2023-07-29 17:45] LABS: Basophils # (auto) 0 10 ^3/uL (0-0.2); Basophils % (auto) 0.2 % (0.0-2.0); Eosinophils # (auto) 0.1 10 ^3/uL (0-0.8); Eosinophils % (auto) 0.9 % (0.0-7.0); Hematocrit 31.6 % (36.0-46.0); Hemoglobin 9.6 g/dL (12.2-16.2); Lymphocytes # (auto) 1.2 10 ^3/uL (0.4-5.4); Lymphocytes % (auto) 10.5 % (10.0-50.0); Mean Corpuscular Hemoglobin 26.7 pg (28.0-32.0); Mean Corpuscular Hgb Conc. 30.5 g/dL (32.0-36.0); Mean Corpuscular Volume 87.4 fL (80.0-100.0); Monocytes # (auto) 0.9 10 ^3/uL (0-1.3); Monocytes % (auto) 7.9 % (0.0-12.0); Neutrophils # (auto) 9.3 10 ^3/uL (1.6-8.6); Neutrophils % (auto) 80.5 % (37.0-80.0); Nucleated Red Blood Cells % 0.1 %; Red Blood Cells 3.61 10^6/uL (4.0-5.20); Red Cell Distribution Width 18.9 % (11.8-14.3); White Blood Cell 11.6 10^3/uL (4.4-10.8)
[2023-07-29 18:06] LABS: Alanine Aminotransferase 16 U/L (7-40); Albumin 4.4 g/dL (3.2-4.8); Alkaline Phosphatase 124 U/L (46-116); Anion Gap 8 (5-15); Aspartate Aminotransferase 30 U/L (13-40); BUN/Creatinine Ratio 20.7 (10.0-20.0); Bilirubin, Total 0.5 mg/dL (0.2-1.0); Blood Urea Nitrogen 23 mg/dL (9-23); Calcium 9.9 mg/dL (8.5-10.1); Carbon Dioxide 25 mmol/L (20-30); Chloride 99 mmol/L (98-107); Glucose 103 mg/dL (74-106); Potassium 4.2 mmol/L (3.5-5.1); Sodium 132 mmol/L (136-145); Total Protein 7.7 g/dL (5.7-8.2)
[2023-07-29 18:09] LABS: Urine Bacteria None Seen /hpf (None Seen)
[2023-07-29 18:51] LABS: Urine Blood Negative /uL (Negative); Urine Clarity Turbid (Clear); Urine Color Yellow (Yellow); Urine Protein, UAD TRACE (Negative); Urine Specific Gravity 1.014 (1.001-1.035); Urine Urobilinogen Normal (Negative); Urine WBC 101 /hpf (0 - 5)
[2023-07-29 18:58] LABS: Lactic Acid w/Reflex 2.1 mmol/L (0.4-2.0)
== END 2023-07-29 19:43 | disposition home or self-care (01) ==
LOC: ER 15:28
DX: N39.0 Urinary tract infection, site not specified (principal); I10 Essential (primary) hypertension; I48.91 Unspecified atrial fibrillation; E78.5 Hyperlipidemia, unspecified; Z87.442 Personal history of urinary calculi; Z98.890 Other specified postprocedural states; Z88.2 Allergy status to sulfonamides; Z79.899 Other long term (current) drug therapy
CPT/HCPCS: 36415; 74176; 80053; 81001; 83605; 85025

== ENCOUNTER 2023-07-30 21:16 | Inpatient (IN) | payer OTHER ==
[~2023-07-30] VITALS: Ht 162.6 cm; Wt 57.9 kg
[2023-07-30 23:47] VITALS: O2SAT 95
[2023-07-30 23:54] LABS: Basophils # (auto) 0 10 ^3/uL (0-0.2); Basophils % (auto) 0.1 % (0.0-2.0); Eosinophils # (auto) 0.2 10 ^3/uL (0-0.8); Eosinophils % (auto) 1.8 % (0.0-7.0); Hematocrit 29.7 % (36.0-46.0); Hemoglobin 9.5 g/dL (12.2-16.2); Lymphocytes # (auto) 1.5 10 ^3/uL (0.4-5.4); Lymphocytes % (auto) 13.8 % (10.0-50.0); Mean Corpuscular Hemoglobin 27.5 pg (28.0-32.0); Mean Corpuscular Hgb Conc. 31.8 g/dL (32.0-36.0); Mean Corpuscular Volume 86.5 fL (80.0-100.0); Monocytes # (auto) 0.9 10 ^3/uL (0-1.3); Monocytes % (auto) 8.1 % (0.0-12.0); Neutrophils # (auto) 8.6 10 ^3/uL (1.6-8.6); Neutrophils % (auto) 76.2 % (37.0-80.0); Nucleated Red Blood Cells % 0.1 %; Red Blood Cells 3.44 10^6/uL (4.0-5.20); Red Cell Distribution Width 18.4 % (11.8-14.3); White Blood Cell 11.2 10^3/uL (4.4-10.8)
[2023-07-31 00:04] LABS: Anion Gap 8 (5-15); Calcium 9.9 mg/dL (8.5-10.1); Carbon Dioxide 25 mmol/L (20-30); Chloride 96 mmol/L (98-107); Potassium 3.8 mmol/L (3.5-5.1); Sodium 129 mmol/L (136-145)
[2023-07-31] MEDS: cefTRIAXone 1GM/50ML D5W 50 ML IV ONE (00:07)
[2023-07-31 00:10] LABS: BUN/Creatinine Ratio 12.9 (10.0-20.0); Blood Urea Nitrogen 21 mg/dL (9-23); Glucose 123 mg/dL (74-106)
[2023-07-31] MEDS ORDERED: DOCUSATE SOD 100 MG CAP PO PRN (01:45)
[2023-07-31] MEDS ORDERED: ACETAMINOPHEN 325 MG TAB PO PRN (01:45)
[2023-07-31] MEDS ORDERED: ONDANSETRON HCL 4 MG/2 ML VIAL IV PRN (01:45)
[2023-07-31] MEDS: SODIUM CHLORIDE 0.9% 1,000 ML IV SCH (02:07)
[2023-07-31] MEDS ORDERED: NITROGLYCERIN 0.4 MG SL TAB SL PRN (02:30)
[2023-07-31] MEDS ORDERED: MORPHINE SULFATE INJ 2 MG/ml SYRG IV PRN (02:30)
[2023-07-31 05:01] VITALS: O2SAT 94
[2023-07-31 05:07] LABS: Basophils # (auto) 0.1 10 ^3/uL (0-0.2); Basophils % (auto) 0.6 % (0.0-2.0); Eosinophils # (auto) 0.3 10 ^3/uL (0-0.8); Eosinophils % (auto) 3.3 % (0.0-7.0); Hematocrit 27.5 % (36.0-46.0); Hemoglobin 8.8 g/dL (12.2-16.2); Lymphocytes # (auto) 1.8 10 ^3/uL (0.4-5.4); Lymphocytes % (auto) 19.6 % (10.0-50.0); Mean Corpuscular Hemoglobin 27.8 pg (28.0-32.0); Mean Corpuscular Volume 86.7 fL (80.0-100.0); Monocytes # (auto) 0.8 10 ^3/uL (0-1.3); Monocytes % (auto) 9.3 % (0.0-12.0); Neutrophils # (auto) 6.1 10 ^3/uL (1.6-8.6); Neutrophils % (auto) 67.2 % (37.0-80.0); Nucleated Red Blood Cells % 0.1 %; Red Blood Cells 3.18 10^6/uL (4.0-5.20); Red Cell Distribution Width 18.3 % (11.8-14.3)
[2023-07-31 05:26] LABS: Alanine Aminotransferase 15 U/L (7-40); Alkaline Phosphatase 107 U/L (46-116); Anion Gap 8 (5-15); Aspartate Aminotransferase 26 U/L (13-40); BUN/Creatinine Ratio 14.2 (10.0-20.0); Bilirubin, Total 0.2 mg/dL (0.2-1.0); Blood Urea Nitrogen 18 mg/dL (9-23); Calcium 9.5 mg/dL (8.5-10.1); Carbon Dioxide 23 mmol/L (20-30); Chloride 100 mmol/L (98-107); Glucose 98 mg/dL (74-106); Potassium 3.7 mmol/L (3.5-5.1); Sodium 131 mmol/L (136-145)
[2023-07-31 05:27] LABS: Total Protein 7.3 g/dL (5.7-8.2)
[2023-07-31 08:44] VITALS: O2SAT 96
[2023-07-31] MEDS: SODIUM CHLORIDE 0.9% 1,000 ML IV ONE (09:10)
[2023-07-31] MEDS ORDERED: RIVAROXABAN 20 MG TAB PO SCH (18:00)
[2023-07-31] MEDS: RIVAROXABAN 15 MG TAB PO SCH (18:20)
[2023-07-31 18:56] LABS: Urine Bacteria None Seen /hpf (None Seen)
[2023-07-31 19:15] LABS: Urine Blood Negative /uL (Negative); Urine Clarity Clear (Clear); Urine Color Light-Yellow (Yellow); Urine Protein, UAD Negative (Negative); Urine Specific Gravity 1.011 (1.001-1.035); Urine Urobilinogen Normal (Negative); Urine WBC 8 /hpf (0 - 5); Urine pH 6.5 (5.0-9.0)
[2023-07-31 19:30] VITALS: RESP 21; O2SAT 97
[2023-07-31] MEDS: HYDROcodone-ACET 5/325MG TAB PO PRN (20:12)
[2023-07-31] MEDS: cefTRIAXone 1GM/50ML D5W 50 ML IV SCH (21:35)
[2023-07-31] MEDS: ATORVASTATIN 20 MG TAB PO SCH (21:35)
[2023-08-01 06:48] LABS: Basophils # (auto) 0 10 ^3/uL (0-0.2); Basophils % (auto) 0.5 % (0.0-2.0); Eosinophils # (auto) 0.2 10 ^3/uL (0-0.8); Eosinophils % (auto) 2.8 % (0.0-7.0); Hematocrit 32.1 % (36.0-46.0); Hemoglobin 10.4 g/dL (12.2-16.2); Lymphocytes # (auto) 1.7 10 ^3/uL (0.4-5.4); Lymphocytes % (auto) 19.6 % (10.0-50.0); Mean Corpuscular Hgb Conc. 32.4 g/dL (32.0-36.0); Mean Corpuscular Volume 86.4 fL (80.0-100.0); Monocytes # (auto) 0.6 10 ^3/uL (0-1.3); Monocytes % (auto) 7.6 % (0.0-12.0); Neutrophils # (auto) 5.9 10 ^3/uL (1.6-8.6); Neutrophils % (auto) 69.5 % (37.0-80.0); Red Blood Cells 3.71 10^6/uL (4.0-5.20); Red Cell Distribution Width 18.1 % (11.8-14.3); White Blood Cell 8.5 10^3/uL (4.4-10.8)
[2023-08-01 07:38] LABS: Alanine Aminotransferase 14 U/L (7-40); Albumin 4.5 g/dL (3.2-4.8); Alkaline Phosphatase 128 U/L (46-116); Anion Gap 9 (5-15); Aspartate Aminotransferase 26 U/L (13-40); Bilirubin, Total 0.4 mg/dL (0.2-1.0); Blood Urea Nitrogen 10 mg/dL (9-23); Carbon Dioxide 24 mmol/L (20-30); Chloride 102 mmol/L (98-107); Glucose 100 mg/dL (74-106); Potassium 3.7 mmol/L (3.5-5.1); Sodium 135 mmol/L (136-145); Total Protein 8.3 g/dL (5.7-8.2)
[2023-08-01 08:00] VITALS: RESP 21; O2SAT 97
[2023-08-01 11:20] LABS: Amphetamine Screen, Urine Neg (NEGATIVE)
[2023-08-01 11:22] LABS: Barbiturate Scree,Urine Neg (NEGATIVE); Benzodiazephine Screen, Urine Neg (NEGATIVE); Cannabinoid Screen, Urine Neg (NEGATIVE); Cocaine Screen, Urine Neg (NEGATIVE); Opiate Scree,Urine Pos (NEGATIVE); Phencyclidine Screen, Urine Neg (NEGATIVE)
[2023-08-01] MEDS ORDERED: CEPH500C PO (11:53)
[2023-08-01 13:00] VITALS: BP 156/76; PULSE 100; RESP 17; TEMP 98.7; O2SAT 96
[2023-08-01 13:48] LABS: % Iron Saturation 9.1 % (15-50)
[2023-08-01 14:36] LABS: Urine Bacteria FEW /hpf (None Seen); Urine Blood 1+ /uL (Negative); Urine Clarity Clear (Clear); Urine Color Light-Yellow (Yellow); Urine Protein, UAD Negative (Negative); Urine Specific Gravity 1.015 (1.001-1.035); Urine Urobilinogen Normal (Negative); Urine WBC 11 /hpf (0 - 5)
[2023-08-01 17:00] VITALS: BP 158/78; PULSE 94; RESP 17; TEMP 98.6; O2SAT 96
== END 2023-08-01 17:34 | disposition hospice, home (50) | DRG 913 ==
LOC: ER 21:16 → OVERFLOW 07-31 02:17 → CENTRAL 08-01 10:37
PROVIDERS: ADMIT Internal Medicine; ATTEND Internal Medicine
DX: S09.8XXA Other specified injuries of head, initial encounter (principal); N17.0 Acute kidney failure with tubular necrosis; E87.1 Hypo-osmolality and hyponatremia; N39.0 Urinary tract infection, site not specified; R26.81 Unsteadiness on feet; I48.91 Unspecified atrial fibrillation; I10 Essential (primary) hypertension; W01.0XXA Fall on same level from slipping, tripping and stumbling without subsequent striking against object, initial encounter; Y93.01 Activity, walking, marching and hiking; D64.9 Anemia, unspecified; E78.00 Pure hypercholesterolemia, unspecified; E86.0 Dehydration; Z86.73 Personal history of transient ischemic attack (TIA), and cerebral infarction without residual deficits; Z88.2 Allergy status to sulfonamides; Z87.442 Personal history of urinary calculi; Z90.49 Acquired absence of other specified parts of digestive tract; Y92.89 Other specified places as the place of occurrence of the external cause; Y99.8 Other external cause status; Z80.51 Family history of malignant neoplasm of kidney
CPT/HCPCS: 36415; 71045; 74176; 76775; 80048; 80053; 80307; 81001; 83540; 83550; 83605; 85025; 86850; 86900; 86901; 87086; 93005; 96365; G0378